=== PATIENT | female | born 1950 | race Caucasian/White ===

== ENCOUNTER 2022-01-16 07:05 | Outpatient (REF) | payer MEDICARE, SELFPAY ==
[2022-01-16 08:34] LABS: Hematocrit 28.6 % (37.0-47.0); Hemoglobin 8.9 g/dl (12.0-16.0); Mean Corpuscular HGB Conc 31.1 g/dl (31.0-35.0); Mean Corpuscular Hemoglobin 32.5 pg (27.0-33.0); Mean Corpuscular Volume 104.4 fL (80.0-98.0); Mean Platelet Volume 10.5 fL (9.4-12.3); Platelet Count 303 X10*3/uL (160-400); Red Blood Count 2.74 X10*6/uL (4.20-5.50); White Blood Count 6.7 X10*3/uL (4.8-10.8)
[2022-01-16 09:02] LABS: Alanine Aminotransferase 17 U/L (0-31); Alkaline Phosphatase 52 U/L (39-117); Anion Gap 15 (12-20); Aspartate Amino Transferase 15 U/L (5-31); Bilirubin Total 0.5 mg/dL (0.0-1.0); Blood Urea Nitrogen 48 mg/dL (9-16); Calcium 9.2 mg/dL (8.4-10.2); Carbon Dioxide 19 mmol/L (22-29); Chloride 105 mmol/L (96-108); Cholesterol 162 mg/dL; Estimated Glomerular Filt Rate 24; Glucose Random 100 mg/dL (60-115); HDL Cholesterol 52 mg/dL; LDL Cholesterol Calculated 94 mg/dl; Potassium 4.9 mmol/L (3.3-5.1); Sodium 134 mmol/L (135-145); Total Protein 7.1 g/dL (6.5-8.0); Triglycerides 83 mg/dL
[2022-01-16 09:13] LABS: TSH reflex Free T4 1.31 uIU/mL (0.32-4.0)
== END 2022-01-16 07:06 | disposition home or self-care (01) ==
LOC: HO.LAB 07:05
PROVIDERS: PCP Hospitalist; Visit Provider Hospitalist
DX: Z00.00 Encounter for general adult medical examination without abnormal findings (principal); Z13.220 Encounter for screening for lipoid disorders; Z13.29 Encounter for screening for other suspected endocrine disorder
CPT/HCPCS: 36415; 80053; 80061; 84443; 85027

== ENCOUNTER 2022-01-24 07:01 | Outpatient (REF) | payer MEDICARE, OTHER, SELFPAY ==
[2022-01-24 09:19] LABS: Anion Gap 14 (12-20); Blood Urea Nitrogen 55 mg/dL (9-16); Calcium 9.2 mg/dL (8.4-10.2); Carbon Dioxide 18 mmol/L (22-29); Chloride 106 mmol/L (96-108); Estimated Glomerular Filt Rate 33; Glucose Fasting 99 mg/dL (60-99); Iron 67 mcg/dL (30-160); Percent Iron Saturation 20 % (15-50); Potassium 4.9 mmol/L (3.3-5.1); Sodium 133 mmol/L (135-145); Total Iron Binding Capacity 331 mcg/dL (228-428); Unsaturated Iron Binding 264 ug/dL
[2022-01-24 09:27] LABS: Folate 11.5 ng/mL (> or = 4.0); Vitamin B12 415 pg/mL (200-900)
[2022-01-24 10:59] LABS: Appearance Urine HAZY; Color Urine YELLOW; Glucose Urine UA NEG (NEG); Leukocyte Esterase Urine 1+ (NEG); Nitrite Urine NEG (NEG); Urine Blood NEG (NEG); Urine Ketones NEG (NEG); Urine Protein NEG (NEG-TRACE)
[2022-01-24 11:22] LABS: Bacteria Urine 2+ /LPF; Mucus Urine 1+ /LPF; RBC Urine 0 /HPF (0); Squamous Epithelial Cell Urine 2+ /LPF
== END 2022-01-24 07:02 | disposition home or self-care (01) ==
LOC: HO.LAB 07:01
PROVIDERS: PCP Hospitalist; Visit Provider Hospitalist
DX: R74.8 Abnormal levels of other serum enzymes (principal); D64.9 Anemia, unspecified
CPT/HCPCS: 36415; 80048; 81001; 81003; 82607; 82746; 83540

== ENCOUNTER 2022-02-02 13:49 | Outpatient (REF) | payer MEDICARE, MEDICAID, SELFPAY ==
--- NOTE | ~2022-02-02 | CT_ITS ---
EXAMINATION: CT CHEST SCREENING CLINICAL INFORMATION: Nicotine dependence, cigarettes 1 pack per day x 45 years. COMPARISON: None. TECHNIQUE: Multidetector volumetric CT imaging of the chest is performed without contrast using low dose technique. Additional 2D coronal and sagittal reformatted images and axial 3D maximum intensity projection (MIP) images are generated on the CT workstation. This CT examination was performed using dose optimization techniques as appropriate, variously including the following: *Automated exposure control *Adjustment of mA and/or kV according to patient size (this includes techniques or standardized protocols for targeted exams where dose is matched to indication/reason for exam; i.e. extremities or head) *Use of iterative reconstruction technique DLP: 134 mGy-cm FINDINGS: LUNGS: The lungs are well-expanded with bibasilar apical parenchymal scarring and pleural thickening. Again visualized is a 7 mm perifissural nodule left lower lobe axial image 283/6. There is a 4 mm nodule right lower lobe axial image 461/6, new since the previous study. Focal atelectatic changes seen in the left lower lobe anterolateral basal segment. MEDIASTINUM: The thyroid lobes are symmetrical and normal. The central trachea and bronchi are widely patent. The heart size and great vessels are normal caliber. There is no abnormal mediastinal lymphadenopathy. There is no pericardial effusion seen. Mild coronary artery calcifications are visualized. PLEURA: There is no pleural effusion. No pleural mass or thickening. AXILLA: Small shotty lymph nodes are seen in the axilla. The chest wall is unremarkable. UPPER ABDOMEN: Visualized liver, spleen, pancreas and bilateral adrenal glands are unremarkable. OSSEOUS STRUCTURES: There is a superior endplate Schmorl's node T12 vertebra. No lytic or sclerotic process seen. CT/CT lung screening IMPRESSION: Stable 7 mm perifissural nodule left lower lobe. There is a 4 mm new nodule right lower lobe. ASSESSMENT: Lung-RADS category 2: Benign RECOMMENDATION: Low-dose annual CT chest.
== END 2022-02-02 13:50 | disposition home or self-care (01) ==
LOC: HO.CT 13:49
PROVIDERS: Visit Provider Physician Assistant Medical
DX: Z12.2 Encounter for screening for malignant neoplasm of respiratory organs (principal); F17.210 Nicotine dependence, cigarettes, uncomplicated
CPT/HCPCS: 71271; G0296

== ENCOUNTER → 2022-03-14 10:52 | Outpatient (BNVA) | payer MEDICARE, MEDICAID, SELFPAY | PROVIDERS: PCP Hospitalist; Visit Provider Nurse Practitioner Family | DX: R19.7 Diarrhea, unspecified (principal); R74.8 Abnormal levels of other serum enzymes; K92.2 Gastrointestinal hemorrhage, unspecified; E55.9 Vitamin D deficiency, unspecified; F17.210 Nicotine dependence, cigarettes, uncomplicated; Z12.11 Encounter for screening for malignant neoplasm of colon | CPT/HCPCS: 99202; 99212 ==

== ENCOUNTER 2022-03-22 09:12 | Outpatient (REF) | payer MEDICARE, MEDICAID, SELFPAY ==
[2022-03-22 09:43] LABS: Hematocrit 29.7 % (37.0-47.0); Hemoglobin 9.9 g/dl (12.0-16.0); Mean Corpuscular HGB Conc 33.3 g/dl (31.0-35.0); Mean Corpuscular Hemoglobin 33.1 pg (27.0-33.0); Mean Corpuscular Volume 99.3 fL (80.0-98.0); Mean Platelet Volume 10.2 fL (9.4-12.3); Platelet Count 280 X10*3/uL (160-400); Red Blood Count 2.99 X10*6/uL (4.20-5.50); Red Cell Distribution Width 11.9 % (11.0-16.0)
[2022-03-22 10:36] LABS: Iron 72 mcg/dL (30-160); Percent Iron Saturation 21 % (15-50); Total Iron Binding Capacity 339 mcg/dL (228-428); Unsaturated Iron Binding 267 ug/dL
[2022-03-22 10:39] LABS: Ferritin 183 ng/mL (10-250)
[2022-03-22 11:19] LABS: Folate 15.3 ng/mL (> or = 4.0); Vitamin B12 409 pg/mL (200-900)
[2022-03-26 14:17] LABS: Vitamin D 25-OH, D2 <4 ng/mL; Vitamin D 25-OH, D3 22 ng/mL; Vitamin D 25-OH, Total 22 ng/mL (30-100)
== END 2022-03-22 09:13 | disposition home or self-care (01) ==
LOC: HO.LAB 09:12
PROVIDERS: PCP Hospitalist; Visit Provider Nurse Practitioner Family
DX: E55.9 Vitamin D deficiency, unspecified (principal); R19.7 Diarrhea, unspecified; K92.2 Gastrointestinal hemorrhage, unspecified; R74.8 Abnormal levels of other serum enzymes; Z12.11 Encounter for screening for malignant neoplasm of colon
CPT/HCPCS: 36415; 82306; 82607; 82728; 82746; 83540; 85027

== ENCOUNTER 2022-05-04 07:00 | Outpatient (REF) | payer MEDICARE, MEDICAID, SELFPAY ==
[2022-05-04 08:13] LABS: Hematocrit 30.4 % (37.0-47.0); Hemoglobin 9.8 g/dl (12.0-16.0); Mean Corpuscular HGB Conc 32.2 g/dl (31.0-35.0); Mean Corpuscular Hemoglobin 32.1 pg (27.0-33.0); Mean Corpuscular Volume 99.7 fL (80.0-98.0); Mean Platelet Volume 10.6 fL (9.4-12.3); Platelet Count 283 X10*3/uL (160-400); Red Blood Count 3.05 X10*6/uL (4.20-5.50); Red Cell Distribution Width 12.8 % (11.0-16.0); White Blood Count 5.9 X10*3/uL (4.8-10.8)
[2022-05-04 08:56] LABS: Alanine Aminotransferase 13 U/L (0-31); Albumin Level 4.1 g/dL (3.5-5.0); Alkaline Phosphatase 47 U/L (39-117); Anion Gap 14 (12-20); Aspartate Amino Transferase 16 U/L (5-31); Bilirubin Total 0.3 mg/dL (0.0-1.0); Blood Urea Nitrogen 68 mg/dL (9-16); Calcium 8.4 mg/dL (8.4-10.2); Carbon Dioxide 20 mmol/L (22-29); Chloride 105 mmol/L (96-108); Cholesterol 191 mg/dL; Estimated Glomerular Filt Rate 32; Glucose Fasting 99 mg/dL (60-99); HDL Cholesterol 61 mg/dL; LDL Cholesterol Calculated 104 mg/dl; Magnesium 0.8 mg/dL (1.6-2.6); Phosphorus 4.1 mg/dL (2.7-4.5); Potassium 4.7 mmol/L (3.3-5.1); Sodium 134 mmol/L (135-145); Total Protein 7.1 g/dL (6.5-8.0); Triglycerides 130 mg/dL
[2022-05-04 09:12] LABS: TSH reflex Free T4 2.12 uIU/mL (0.32-4.0)
[2022-05-04 09:21] LABS: Appearance Urine CLEAR; Color Urine YELLOW; Glucose Urine UA NEG (NEG); Leukocyte Esterase Urine 1+ (NEG); Nitrite Urine NEG (NEG); Urine Blood NEG (NEG); Urine Ketones NEG (NEG); Urine Protein NEG (NEG-TRACE)
[2022-05-04 09:35] LABS: Bacteria Urine TRACE /LPF; Squamous Epithelial Cell Urine 1+ /LPF
[2022-05-04 09:36] LABS: RBC Urine 0 /HPF (0)
[2022-05-07 12:51] LABS: CA-125 7 U/mL (<35)
== END 2022-05-04 07:01 | disposition home or self-care (01) ==
LOC: HO.LAB 07:00
PROVIDERS: PCP Hospitalist; Visit Provider Hospitalist
DX: I10 Essential (primary) hypertension (principal); D64.9 Anemia, unspecified; K21.9 Gastro-esophageal reflux disease without esophagitis; F10.10 Alcohol abuse, uncomplicated; K52.9 Noninfective gastroenteritis and colitis, unspecified; R74.8 Abnormal levels of other serum enzymes; N93.9 Abnormal uterine and vaginal bleeding, unspecified; R63.4 Abnormal weight loss
CPT/HCPCS: 36415; 80053; 80061; 81001; 83735; 84100; 84443; 85027; 86304

== ENCOUNTER 2022-05-15 07:02 | Outpatient (REF) | payer MEDICARE, MEDICAID, SELFPAY ==
[2022-05-15 08:16] LABS: Anion Gap 13 (12-20); Blood Urea Nitrogen 84 mg/dL (9-16); Calcium 9.2 mg/dL (8.4-10.2); Carbon Dioxide 22 mmol/L (22-29); Chloride 101 mmol/L (96-108); Estimated Glomerular Filt Rate 27; Glucose Fasting 110 mg/dL (60-99); Iron 109 mcg/dL (30-160); Magnesium 1.3 mg/dL (1.6-2.6); Percent Iron Saturation 33 % (15-50); Potassium 4.5 mmol/L (3.3-5.1); Sodium 131 mmol/L (135-145); Total Iron Binding Capacity 332 mcg/dL (228-428); Unsaturated Iron Binding 223 ug/dL
[2022-05-15 08:43] LABS: Folate 12.8 ng/mL (> or = 4.0); Vitamin B12 369 pg/mL (200-900)
[2022-05-15 09:00] LABS: Appearance Urine CLEAR; Color Urine YELLOW; Glucose Urine UA NEG (NEG); Leukocyte Esterase Urine TRACE (NEG); Nitrite Urine NEG (NEG); Specific Gravity - Urine <= 1.005 (1.005-1.025); Urine Blood NEG (NEG); Urine Ketones NEG (NEG); Urine Protein NEG (NEG-TRACE)
[2022-05-15 09:14] LABS: Bacteria Urine 1+ /LPF; RBC Urine 0 /HPF (0); Squamous Epithelial Cell Urine 1+ /LPF; WBC Clumps Urine NOTED
== END 2022-05-15 07:03 | disposition home or self-care (01) ==
LOC: HO.LAB 07:02
PROVIDERS: PCP Hospitalist; Visit Provider Hospitalist
DX: R79.0 Abnormal level of blood mineral (principal); R74.8 Abnormal levels of other serum enzymes; D64.9 Anemia, unspecified
CPT/HCPCS: 36415; 80048; 81001; 81003; 82607; 82746; 83540; 83735

== ENCOUNTER 2022-07-17 09:42 | Day surgery (SDC) | payer MEDICARE, MEDICAID, SELFPAY ==
[2022-07-12 13:39] VITALS: BMI 16.4
--- NOTE | 2022-07-16 13:15 | HO.ANESPROP2 ---
Documented by User: Orin Beck NP 07/16/22 13:17 HPI - Anesthesia Eval Consult details Narrative: 71yo F for Upper Endoscopy and Colonoscopy [facility] Active Problems Active Problems: All Active Problems (Updated 07/02/22 @ 16:39 by Cleopatra Crespo CNP) Pruritic rash (Acute) Other specified menopausal and perimenopausal disorders (Acute) Vitamin D deficiency (Acute) Elevated creatine kinase (Acute) Low magnesium level (Acute) Abnormal physical evaluation (Acute) Abnormal uterine bleeding (Acute) Screening for osteoporosis (Acute) Hypertension, essential (Acute) Personal history of nicotine dependence (Acute) Anemia (Acute) Elevated creatine kinase (Acute) Smoker (Acute) Lumbago (Acute) Chronic diarrhea (Acute) Persistent depressive disorder with anxious distress, currently mild (Acute) Muscle spasms of neck (Acute) Headache (Acute) Weight loss (Acute) Anxiety and depression (Acute) Alcohol abuse (Acute) Seborrheic dermatitis (Acute) Chronic GERD (Acute) Past Medical History Medical History Anxiety and depression Hypertension, essential Personal history of nicotine dependence Tubular adenoma of colon (~2008) Family History Family History Father CVD (cardiovascular disease) Past heart attack Mother Hypertension Arthritis Sister Down syndrome Sister Stroke Daughter Acute asthma Son No problems noted. Surgical History Surgical History History of bunionectomy (~2008) History of colonoscopy History of D&C (~2017) History of esophagogastroduodenoscopy (EGD) History of meniscectomy of right knee (~2009) History of tubal ligation Social History Social History Housing: Other (no domestic violence) Alcohol intake: current Alcohol intake frequency: holidays/special occasions only Patient Tobacco Use Status: Current everyday Tobacco user Tobacco use type: Cigarette Cigarette Packs Per Day: 1 Years Smoked: (onset 16yo, 1ppd x 52yrs - 50PYH) e-Cigarette/Vaping Use: Never Used Advance Directives: No Advance Directives Information Provided: Yes service: No Current occupational status: retired Cognitive needs: No Hearing needs: No Vision needs: Yes Meds Allergies Allergy/AdvReac Type Severity Reaction Status Date / Time No Known Allergies Allergy Verified 07/17/22 10:01 Exam Exam Date and Time: July 16, 2022 1315 Height,Weight and Vital Signs: Height 5 ft 1 in Weight 39.463 kg Pertinent Lab Results Pertinent Lab Results: Laboratory Tests 05/04/22 05/15/22 07:14 07:16 WBC 5.9 Hgb 9.8 L Hct 30.4 L Plt Count 283 Sodium 131 L Potassium 4.5 Chloride 101 Carbon Dioxide 22 BUN 84 H D Creatinine 1.85 H Assessment and Plan Assessment Anesthesia Assessment: Chart Reviewed Documented by User: Santino Harper MD 07/17/22 10:33 [facility] Past Medical History Medical History Anxiety and depression Hypertension, essential Personal history of nicotine dependence Tubular adenoma of colon (~2008) Family History Family History Father CVD (cardiovascular disease) Past heart attack Mother Hypertension Arthritis Sister Down syndrome Sister Stroke Daughter Acute asthma Son No problems noted. Family history of problems with anesthesia: No Surgical History Surgical History History of bunionectomy (~2008) History of colonoscopy History of D&C (~2017) History of esophagogastroduodenoscopy (EGD) History of meniscectomy of right knee (~2009) History of tubal ligation History of Problems with Anesthesia: No Social History Social History Housing: Other (no domestic violence) Alcohol intake: current Alcohol intake frequency: holidays/special occasions only Patient Tobacco Use Status: Current everyday Tobacco user Tobacco use type: Cigarette Cigarette Packs Per Day: 1 Years Smoked: (onset 16yo, 1ppd x 52yrs - 50PYH) e-Cigarette/Vaping Use: Never Used Advance Directives: No Advance Directives Information Provided: Yes service: No Current occupational status: retired Cognitive needs: No Hearing needs: No Vision needs: Yes Meds Allergies Allergy/AdvReac Type Severity Reaction Status Date / Time No Known Allergies Allergy Verified 07/17/22 10:01 Exam Airway Mallampati Class: I TM Dist: >3cm Neck ROM: Full Denture: Upper and Lower Heart: rrr Lungs: clear Assessment and Plan Final Anesthetic Review Family History of Problems with Anesthesia: No History of Problems with Anesthesia: No NPO: Yes ASA Class: III Final Preanesthetic Review: No Changes in Pt Med Stat, Meds/Allgs Chart Reviewed, Consent Obtained/Reviewed and Anes Risks/Benef Reviewed Patient Risk: Intermediate Procedure Risk: Low Anesthetic Plan Anesthetic Plan: MAC: Disposition: Standard PACU
--- NOTE | 2022-07-17 09:49 | MHC.SHP ---
Pre-Procedural Eval Section A Date of Service: 07/17/22 Section B Chief Complaint: anemia Details of Present Illness: weight loss and dysphagia Relevant Social History: Tobacco Use Present Medications: see Short Stay Collaborative assessment Medical History: Significant History (Anxiety and depression Hypertension, essential Personal history of nicotine dependence Tubular adenoma of colon (~2008)) History of Previous Operations: Relevant previous surgery/procedure and date(s) (History of bunionectomy (~2008) History of colonoscopy History of D&C (~2017) History of esophagogastroduodenoscopy (EGD) History of meniscectomy of right knee (~2009) History of tubal ligation) Allergies: Allergies Allergy/AdvReac Type Severity Reaction Status Date / Time No Known Allergies Allergy Verified 07/02/22 16:43 Review of Systems Sugical H&P ROS: Negative: Constitution, Cardiovascular, Respiratory, Neurological, Psychiatric, Hem-Onc, Allergic/Immunologic, Gastrointestinal, Genitourinary, Musculoskeletal, Integumentary, Endocrine and Eyes/Ears/Nose/Throat Exam Surgical H&P Exam: Normal: HEENT, Normal: Extremities, Normal: Abdomen, Normal: Skin and Normal: Neurological and Significant Findings: Heart (hyperinflated chest) and Significant Findings: Lungs (reduced air entry) Exam Comment: thin Plan Diagnosis/Plan: Unchanged I have reviewed the history and physical and performed a pertinent physical examination on my patient. No changes have occurred unless specified.
[2022-07-17 10:10] VITALS: BP 124/59; PULSE 79; RESP 18; TEMP 36.8; O2SAT 100
--- NOTE | 2022-07-17 10:22 | P.OP_ITS ---
Operative Note Operative Note Date of Service: 07/17/22 Narrative: Operative Information Procedure Description: EGD, Colonoscopy Indication: anemia, weight loss, dysphagia Anesthesia: MAC FLEXIBLE TRANSORAL UPPER GASTROINTESTINAL ENDOSCOPY AND COLONOSCOPY PROCEDURE NOTE UPPER ENDOSCOPY Consent: Indications for the procedure and potential complications of bleeding, perforation, reaction to medications and missed diagnosis were discussed with the patient and informed consent was obtained. Instrument: Olympus GIF H 190 J mid size upper endoscope Monitoring: Vital signs and clinical assessment, continuous EKG monitoring, Pulse oximetry, Carbon Dioxide monitoring and blood pressure monitoring were done throughout the procedure. Procedure: The patient was placed in the left lateral decubitis position and pre-procedure medications were administered and a bite block was placed. The endoscope was inserted into the mouth and advanced under direct vision to the third part of duodenum. A careful inspection was made as the upper endoscope was withdrawn including a retroflexed examination of the proximal stomach; Findings and interventions are described below. Findings: Larynx:normal Esophagus: GE junction at 42 cm, diaphragm hiatus at 42 cm, distal esophagus appeared strictured, dilated to 14 mm with resistance felt but no tears seen, UEs also dilated to 14 mm. [place] pink tongues 1 cm with island of salmon pink tissue, bx taken as well as WATS 3 D brushing,. forceps bx also taken from GEJ, distal esophagus. Stomach: Normal mucosa. Biopsies were obtained. Grade 2 flap valve on retroflexed examination of the cardia. Duodenum: mild bulbar duodenitis, bx taken Intervention: Biopsies as noted above, balloon dilation COLONOSCOPY Instrument: Olympus variable stiffness pediatric scope 190L Colonoscopy Monitoring: Vital signs and clinical assessment, continuous EKG monitoring, Pulse oximetry, Carbon Dioxide monitoring and blood pressure monitoring were done throughout the procedure. Colon withdrawal time was 12 minutes. Procedure: The patient was placed in the left lateral decubitis position and pre-procedure medications were administered. After a digital rectal examination of the ano-rectum, the video colonoscope was inserted into the rectum and advanced through the colon to the cecum/TI. The colonoscope was slowly withdrawn in a retrograde panoramic fashion and the colon mucosa was carefully examined including a retroflexed view of the rectum. Findings and interventions are described below. Procedure Difficulty:moderate Findings: Terminal Ileum-normal random colon bx taken to r/o infiltrative disease Cecum:normal Ascending Colon: normal Transverse Colon -normal Descending Colon: diverticulosis Sigmoid Colon: severe diverticulosis with varied sized tics and luminal narrowing Rectum: Retroflexion with small internal hemorrhoids, grade I Anorectum - normal Colon preparation: [place] Bowel Preparation Scale Right colon; 2 Transverse colon: 3 Left colon; 2 (0 = Unprepared colon segment with mucosa not seen due to solid stool that cannot be cleared. 1 = Portion of mucosa of the colon segment seen, but other areas of the colon segment not well seen due to staining, residual stool and/or opaque liquid. 2 = Minor amount of residual staining, small fragments of stool and/or opaque liquid, but mucosa of colon segment seen well. 3 = Entire mucosa of colon segment seen well with no residual staining, small fragments of stool or opaque liquid) Impression and Post Procedure Diagnosis: Endoscopy Findings: possible barretts duodenitis esophageal stricturing Colonoscopy Findings: internal hemorrhoids diverticular disease Plan: Await Pathology results Repeat Colonoscopy in 10 years if health allows or earlier if clinically indicated High fiber diet leaflet avoid straining at stool, epsom salts and sitz bath, anusol supps or cream no obvious cause for anemia on exam today, most likely anemia of chronic disease from CKD, possible underlying neoplasia Above findings were reviewed with the patient and relevant handouts were provided if indicated.
[2022-07-17] MEDS: Lactated Ringers 1,000 ML 100 ML IVCONT (10:28)
[2022-07-17 10:36] LABS: Anion Gap 22 (12-20); Blood Urea Nitrogen 64 mg/dL (9-16); Calcium 8.7 mg/dL (8.4-10.2); Carbon Dioxide 15 mmol/L (22-29); Chloride 97 mmol/L (96-108); Creatinine Clr Calc Pharmacy 13.7; Estimated Glomerular Filt Rate 21; Glucose Fasting 83 mg/dL (60-99); Potassium 3.9 mmol/L (3.3-5.1); Sodium 130 mmol/L (135-145)
[2022-07-17 11:26] VITALS: BP 89/42; PULSE 75; RESP 20; TEMP 36.1; O2SAT 98
[2022-07-17 11:41] VITALS: BP 106/58; PULSE 67; RESP 20; O2SAT 98
== END 2022-07-17 12:45 | disposition home or self-care (01) ==
PROVIDERS: Nurse Practitioner; PCP Hospitalist; Visit Provider Internal Medicine Gastroenterology
PROC: (CPT 45380; principal; 2022-07-17 10:50)
DX: Z12.11 Encounter for screening for malignant neoplasm of colon (principal); Z86.010 Personal history of colon polyps; K57.30 Diverticulosis of large intestine without perforation or abscess without bleeding; K64.0 First degree hemorrhoids; D64.9 Anemia, unspecified; K21.9 Gastro-esophageal reflux disease without esophagitis; R13.10 Dysphagia, unspecified; R63.4 Abnormal weight loss; Z68.1 Body mass index [BMI] 19.9 or less, adult; K29.80 Duodenitis without bleeding; K22.2 Esophageal obstruction; K44.9 Diaphragmatic hernia without obstruction or gangrene; I10 Essential (primary) hypertension; F41.8 Other specified anxiety disorders; Z79.899 Other long term (current) drug therapy; F17.210 Nicotine dependence, cigarettes, uncomplicated
CPT/HCPCS: 45380; 43249; 43239; 36415; 80048; 88305; 88312; 88342; C1726

== ENCOUNTER 2023-05-27 09:49 | Outpatient (REF) | payer MEDICARE, MEDICAID, SELFPAY ==
[2023-05-27 12:27] LABS: Anion Gap 16 (12-20); Blood Urea Nitrogen 48 mg/dL (9-16); Calcium 9.4 mg/dL (8.4-10.2); Carbon Dioxide 20 mmol/L (22-29); Chloride 100 mmol/L (96-108); Estimated Glomerular Filt Rate 28; Glucose Random 109 mg/dL (60-115); Potassium 4.6 mmol/L (3.3-5.1); Sodium 131 mmol/L (135-145)
[2023-05-30 12:34] LABS: IgA 383 mg/dL (70-320); IgG 1276 mg/dL (600-1540); IgM 79 mg/dL (50-300)
== END 2023-05-27 09:50 | disposition home or self-care (01) ==
LOC: HO.WFDLDS 09:49
DX: I10 Essential (primary) hypertension (principal); N17.9 Acute kidney failure, unspecified
CPT/HCPCS: 36415; 80048; 82784; 86334

== ENCOUNTER 2023-07-17 09:46 | Outpatient (AMB) | payer MEDICARE, SELFPAY ==
--- NOTE | 2023-07-17 09:51 | A.OFFPC_ITS ---
Vital Signs 07/17/23 09:52 Height 5 ft 2.25 in Weight 93 lb 6 oz BMI 16.9 BP 142/70 H Blood Pressure Location Lt brachial Position Sitting Respiration 13 Pulse 88 Pulse Source Pulse Oximeter Temp 97.8 F Temp Source Oral Pulse Oximetry (%) 98 Oxygen Delivery Method Room Air Intake Visit Reasons: Liver Disease / Skin Issue Intake Note: Patient reports she is here to follow up regarding her itching skin and liver disease concern. Patient reports she has been to a case making machine operator in the area who stated the itching skin is not a dermatology concern, but a medical concern. Fall Intern Required: No Accompanied by: Self / Same As Patient Allergies No Known Allergies Allergy (Verified 07/17/23 09:59) Tobacco use date assessed: 07/17/23 Fall risk assessment: No Falls in past year Last assessed Fall Risk: 07/17/23 Dental Screening Dental Screen Date: 07/17/23 Did you have a dental visit in the last 12 months?: No Did you have a dental problem in the last 6 months where you did not have access to dental care?: No Was dental information given to patient?: Patient has dentist HPI Liver Disease / Skin Issue HPI Details 72 y/o female presents today with compla ints of itching skin and liver disease concerns. Pt reports she had been to the hospital and they had seen issues with her livers. I do not see any notes regarding this. Pt reports she has not been drinking much. She does take tylenol 4-6x a day for about 2000mg per day. [facility] Medical History Personal history of nicotine dependence Tubular adenoma of colon (~2008) Anxiety and depression Hypertension, essential Surgical History History of meniscectomy of right knee (~2009) History of esophagogastroduodenoscopy (EGD) History of colonoscopy History of D&C (~2017) History of tubal ligation History of bunionectomy (~2008) Family History Father CVD (cardiovascular disease) Past heart attack Mother Hypertension Arthritis Sister Down syndrome Sister Stroke Daughter Acute asthma Son No problems noted. Social History Housing: Other (no domestic violence) Alcohol intake: current Alcohol intake frequency: holidays/special occasions only Patient Tobacco Use Status: Current everyday Tobacco user Tobacco use type: Cigarette Cigarette Packs Per Day: 1 Years Smoked: (onset 16yo, 1ppd x 52yrs - 50PYH) e-Cigarette/Vaping Use: Never Used service: No Current occupational status: retired Cognitive needs: No Hearing needs: No Vision needs: Yes Questionnaire Thrive Questionnaire Date Thrive assessed: 07/03/21 STELLA-7 AMB Questionnaire STELLA-7 Date STELLA - 7 assessed: 05/02/22 Source: Developed by Drs. Elio Arriaza, Lay Ward, Chan Cyr and colleagues, with an educational meghan from [employer]. Review of Systems Const Denies chills, Denies fatigue, Denies fever(s), Denies headache(s) and Denies weakness ENT Denies dizziness and Denies headache(s) Card Denies chest pain, Denies lightheadedness, Denies dyspnea and Denies other (Palpitations) Resp Denies cough, Denies dyspnea, Denies wheezing and Denies other ( shortness of breath) Musc Denies numbness and Denies tingling Neuro Denies dizziness, Denies headache(s), Denies numbness, Denies tingling, Denies paresthesias and Denies weakness Psych Denies anxiety and Denies depression Endo Denies fatigue Aller/Immun Denies wheezing Physical exam (Primary Care) Vital Signs: Last Vital Signs Temp 97.8 F 07/17/23 09:52 Pulse 88 07/17/23 09:52 Resp 13 07/17/23 09:52 BP 142/70 H 07/17/23 09:52 Pulse Ox 98 07/17/23 09:52 Oxygen Delivery Method Room Air 07/17/23 09:52 BMI result Body Mass Index 16.9 Tobacco/Smoking Status: Tobacco use Status Tobacco use date assessed 07/17/23 07/17/23 10:02 Patient Tobacco Use Status Current everyday Tobacco 07/17/23 10:02 Tobacco use type Cigarette 07/17/23 10:02 e-Cigarette/Vaping Use Never Used 07/17/23 10:02 Thrive Assessment: Date of Thrive Assessment Date Thrive assessed 07/03/21 07/17/23 10:02 Const General: no acute distress and well developed Nutritional Appearance: underweight Orientation/consciousness: patient oriented x3 HENNC Head: Yes normocephalic and Yes atraumatic Eyes General: appearance normal, both eyes and all related structures Pupils: Equal, round and reactive pupils present EOM: EOMs intact bilaterally Resp Effort & Inspection: normal respiratory effort Auscultation: clear to auscultation bilaterally Cardio Rate: regular rate Rhythm: regular rhythm Heart sounds: S1 normal heart sound present, S2 normal heart sound present, no gallops, no murmurs and no rubs Neuro General: patient oriented x3 and gait normal Cranial nerves: Yes Equal, round and reactive pupils present Psych Affect: normal affect Assessment and Plan Assessment & Plan (1) Pruritic rash: Code(s): L28.2 - Other prurigo Plan: Pruritis of skin with mild dryness Had seen dermatology and was given creams and treatments which did not help. She was then told that she has a medical condition not a skin condition. (2) Back pain: Code(s): M54.9 - Dorsalgia, unspecified Plan: Complaints of back pain and headaches. She has been using Tylenol frequently. Advised her to reduce this as I am checking her liver enzymes since she has been told that she has problems with her liver. (3) Immunization counseling: Code(s): Z71.85 - Encounter for immunization safety counseling Plan: Due for flu shot. Advised high-dose flu shot but patient would like to get flu shot here today. Will give flu shot (4) Alcohol abuse: Code(s): F10.10 - Alcohol abuse, uncomplicated Plan: Patient says she has been told she has problems with her liver. Denies current alcohol use. Prior notes from her previous PCP note that she has some inconsi stencies with whether she is drink air not. Unclear what her alcohol use status is. Unclear what her liver enzymes and liver function tests are currently. Checking labs. Advise she decrease or avoid Tylenol use and alcohol use. Hydrate well. Plan Patient also notes that she has been seen for liver problems but I do not have any notes from her liver specialist. Will request these and she will try to bring the min. Checking lab work today. Orders: Orders UA and rflx microscopic Today L28.2 - Other prurigo, Z00.00 - Encounter for general adult medical examination without abnormal findings Prothrombin Time INR Today F10.10 - Alcohol abuse, uncomplicated Complete Blood Count Auto Diff Today L28.2 - Other prurigo, Z00.00 - Encounter for general adult medical examination without abnormal findings Comprehensive Met. Panel Today L28.2 - Other prurigo Vitamin B12 and Folate Today E53.8 - Deficiency of other specified B group vitamins, L28.2 - Other prurigo Influenza [id number] Immunization Today F10.10 - Alcohol abuse, uncomplicated, Z23 - Encounter for immunization Medications: New flu vacc [id number] 6mos up(PF) 0.5 mL IM ONCE 0.5 mL 0RF F10.10 - Alcohol abuse, uncomplicated, Z23 - Encounter for immunization Coding Level of Care Code Est Pt Level 4 (60759) Diagnoses Pruritic rash L28.2 Back pain M54.9 Immunization counseling Z71.85 Alcohol abuse F10.10
[2023-07-17 09:52] VITALS: BP 142/70; PULSE 88; RESP 13; TEMP 36.6; O2SAT 98; BMI 16.9
== END 2023-07-17 11:55 | disposition home or self-care (01) ==
PROVIDERS: PCP Hospitalist; Visit Provider Family Medicine
DX: L28.2 Other prurigo (principal); M54.9 Dorsalgia, unspecified; Z71.85 Encounter for immunization safety counseling; F10.10 Alcohol abuse, uncomplicated; Z23 Encounter for immunization
CPT/HCPCS: 90471; 90686; 99214

== ENCOUNTER 2023-07-17 11:39 | Outpatient (REF) | payer MEDICARE, SELFPAY ==
[2023-07-17 14:42] LABS: MANUAL DIFF FLAG NO
[2023-07-17 14:50] LABS: Appearance Urine Clear; Color Urine Yellow; Glucose Urine UA Negative (Negative); Leukocyte Esterase Urine Small (1+) (Negative); Nitrite Urine Negative (Negative); PH 5.5 (5.0-9.0); Specific Gravity - Urine 1.015 (1.005-1.025); UMIC TRIGGER UA YES; Urine Blood Negative (Negative); Urine Ketones Negative (Negative); Urine Protein Negative (Neg-Trace)
[2023-07-17 15:04] LABS: Bacteria Urine None Seen (None Seen); Hyaline Casts Urine 0-2 /LPF (0-2); RBC Urine 0-2 /HPF (0-2); Squamous Epithelial Cell Urine 0-2 /HPF (0-2)
[2023-07-17 15:08] LABS: Basophils Absolute Auto 0.1 X10*3/uL (0.0-0.2); Basophils Percent Auto 1.2 % (0-2); Eosinophils Absolute Auto 0.3 X10*3/uL (0.0-0.4); Eosinophils Percent Auto 5.4 % (0-4); Hematocrit 32.1 % (37.0-47.0); Hemoglobin 10.4 g/dl (12.0-16.0); Imm Gran Abs Auto 0.02 X10*3/uL (0.00-0.03); Imm Gran Pct Auto 0.3 % (0.0-0.4); Lymphocytes Absolute Auto 1.5 X10*3/uL (1.2-4.9); Lymphocytes Percent Auto 26.3 % (20-40); Mean Corpuscular HGB Conc 32.4 g/dl (31.0-35.0); Mean Corpuscular Hemoglobin 33.4 pg (27.0-33.0); Mean Corpuscular Volume 103.2 fL (80.0-98.0); Mean Platelet Volume 10.5 fL (9.4-12.3); Monocytes Absolute Auto 0.5 X10*3/uL (0.1-1.2); Monocytes Percent Auto 7.8 % (2-11); Neutrophils Absolute Auto 3.4 x10*3/uL (2.0-8.3); Platelet Count 314 X10*3/uL (160-400); Red Blood Count 3.11 X10*6/uL (4.20-5.50); Red Cell Distribution Width 14.8 % (11.0-16.0); White Blood Count 5.8 X10*3/uL (4.8-10.8)
[2023-07-17 15:09] LABS: INTERNATIONAL NORM RATIO 0.8 (0.9-1.1); Prothrombin Time 9.9 SEC (11.1-13.3)
[2023-07-17 15:20] LABS: Alanine Aminotransferase 10 U/L (0-31); Albumin Level 4.4 g/dL (3.5-5.0); Alkaline Phosphatase 46 U/L (39-117); Anion Gap 13 (12-20); Aspartate Amino Transferase 19 U/L (5-31); Bilirubin Total 0.3 mg/dL (0.0-1.0); Blood Urea Nitrogen 32 mg/dL (9-16); Calcium 9.6 mg/dL (8.4-10.2); Carbon Dioxide 24 mmol/L (22-29); Chloride 102 mmol/L (96-108); Estimated Glomerular Filt Rate 30; Glucose Random 97 mg/dL (60-115); Potassium 4.2 mmol/L (3.3-5.1); Sodium 135 mmol/L (135-145); Total Protein 7.9 g/dL (6.5-8.0)
[2023-07-17 15:50] LABS: Folate 12.4 ng/mL (> or = 4.0); Vitamin B12 458 pg/mL (200-900)
== END 2023-07-17 11:40 | disposition home or self-care (01) ==
LOC: HO.WFDLDS 11:39
PROVIDERS: Visit Provider Family Medicine
DX: Z00.00 Encounter for general adult medical examination without abnormal findings (principal); L28.2 Other prurigo; E53.8 Deficiency of other specified B group vitamins; F10.10 Alcohol abuse, uncomplicated
CPT/HCPCS: 36415; 80053; 81001; 81003; 82607; 82746; 85025; 85610

== ENCOUNTER 2023-07-30 09:43 | Outpatient (AMB) | payer MEDICARE, SELFPAY ==
[2023-07-30 09:47] VITALS: BP 128/72; PULSE 78; O2SAT 98; BMI 16.4
--- NOTE | 2023-07-30 09:47 | MHC.PC.OV ---
Vital Signs 07/30/23 09:47 Height 5 ft 2.5 in Weight 91 lb BMI 16.4 BP 128/72 Blood Pressure Location Lt brachial Position Sitting Pulse 78 Pulse Source Pulse Oximeter Pulse Oximetry (%) 98 Oxygen Delivery Method Room Air Intake Visit Reasons: f/u labs Intake Note: Patient is here for follow up on labs. Allergies No Known Allergies Allergy (Verified 07/30/23 09:48) Tobacco use date assessed: 07/30/23 Fall risk assessment: No Falls in past year Last assessed Fall Risk: 07/30/23 Dental Screening Dental Screen Date: 07/30/23 Did you have a dental visit in the last 12 months?: No Was dental information given to patient?: Yes HPI f/u labs HPI Details 73 y/o female presents to f/u labs. Has?had?longstanding?complaints?of?itch?and?was?told?by?her?forestry consultant?that?this?was?a?medical?condition?rather?than?a?skin?condition. Does?have?chronic?renal?failure?though?this?has?been?improving?somewhat.??She?had?been?followed?by?nephrology?at?[facility]?[place]?but?does?not?want?to?go?there?any?longer. She?has?significantly?decreased?her?drinking?and?is?only?having?1-2?drinks?on?occasion. Liver?enzymes?have?been?normal,?bilirubin?is?normal. Has?mild/moderate?anemia?which?is?improving. Labs were drawn 07/17/23. Reviewed labs with pt. Anemia. She denies any bleeding in her stools. Creatinine levels improved from 1.78 to 1.65. COUNTS INCLUDE 234 BEDS AT THE [facility] Medical History Personal history of nicotine dependence Tubular adenoma of colon (~2008) Anxiety and depression Hypertension, essential Surgical History History of meniscectomy of right knee (~2009) History of esophagogastroduodenoscopy (EGD) History of colonoscopy History of D&C (~2017) History of tubal ligation History of bunionectomy (~2008) Family History Father CVD (cardiovascular disease) Past heart attack Mother Hypertension Arthritis Sister Down syndrome Sister Stroke Daughter Acute asthma Son No problems noted. Social History Housing: Other (no domestic violence) Alcohol intake: current Alcohol intake frequency: holidays/special occasions only Patient Tobacco Use Status: Current everyday Tobacco user Tobacco use type: Cigarette Cigarettes Per Day: 10 Years Smoked: (onset 16yo, 1ppd x 52yrs - 50PYH) e-Cigarette/Vaping Use: Never Used service: No Current occupational status: retired Cognitive needs: No Hearing needs: No Vision needs: Yes Questionnaire Thrive Questionnaire Date Thrive assessed: 07/03/21 STELLA-7 AMB Questionnaire STELLA-7 Date STELLA - 7 assessed: 05/02/22 Source: Developed by Drs. Elio Arriaza, Lay Ward, Chan Cyr and colleagues, with an educational meghan from [employer]. Review of Systems Const Denies chills, Denies fatigue, Denies fever(s), Denies headache(s) and Denies weakness ENT Denies dizziness and Denies headache(s) Card Denies chest pain, Denies lightheadedness, Denies dyspnea and Denies other (Palpitations) Resp Denies cough, Denies dyspnea, Denies wheezing and Denies other ( shortness of breath) Musc Denies numbness and Denies tingling Neuro Denies dizziness, Denies headache(s), Denies numbness, Denies tingling, Denies paresthesias and Denies weakness Psych Denies anxiety and Denies depression Endo Denies fatigue Aller/Immun Denies wheezing Physical exam (Primary Care) Vital Signs: Last Vital Signs Pulse 78 07/30/23 09:47 BP 128/72 07/30/23 09:47 Pulse Ox 98 07/30/23 09:47 Oxygen Delivery Method Room Air 07/30/23 09:47 BMI result Body Mass Index 16.4 Tobacco/Smoking Status: Tobacco use Status Tobacco use date assessed 07/30/23 07/30/23 09:55 Patient Tobacco Use Status Current everyday Tobacco 07/30/23 09:55 Tobacco use type Cigarette 07/30/23 09:55 e-Cigarette/Vaping Use Never Used 07/30/23 09:55 Thrive Assessment: Date of Thrive Assessment Date Thrive assessed 07/03/21 07/30/23 09:55 Const General: no acute distress and well developed Nutritional Appearance: well nourished Orientation/consciousness: patient oriented x3 [facility] Head: Yes normocephalic and Yes atraumatic Eyes General: appearance normal, both eyes and all related structures Pupils: Equal, round and reactive pupils present EOM: EOMs intact bilaterally Resp Effort & Inspection: normal respiratory effort Auscultation: clear to auscultation bilaterally Cardio Rate: regular rate Rhythm: regular rhythm Heart sounds: S1 normal heart sound present, S2 normal heart sound present, no gallops, no murmurs and no rubs Neuro General: patient oriented x3 and gait normal Cranial nerves: Yes Equal, round and reactive pupils present Psych Affect: normal affect Assessment and Plan Assessment & Plan (1) Renal failure: Code(s): N19 - Unspecified kidney failure Plan: Improving?but?does?have?some?chronic?renal?failure.??Unclear?what?her?baseline?is. Does?not?want?to?go?to?[facility]?nephrology?any?longer?as?it?is?too?far?for?her. She?lives[facility]near[facility]and?I?will?refer?her?to? No?longer?on?FREDA?inhibitor?or?hydrochlorothiazide. If?renal?function?continues?to?improve,?may?want?to?add?back?a?small?dose?FREDA (2) Anemia: Code(s): D64.9 - Anemia, unspecified Plan: Improving. Denies?any?GI?bleeding?and?had?a?recent?colonoscopy/endoscopy. Endoscopy?Has?some?erosive?esophagitis?but?otherwise?was?okay.??She?will?follow-up?with?GI We?will?continue?to?follow?H&H Encouraged?her?to?maintain?alcohol?abstinence?as?best?she?can (3) Screening for colon cancer: Code(s): Z12.11 - Encounter for screening for malignant neoplasm of colon Plan: Follow-up?with?GI (4) Pruritic rash: Code(s): L28.2 - Other prurigo Plan: Pruritic?rash?does?not?seem?to?be?medical Continue?clobetasol?and?I?encouraged?her?to?use?a moisturizing?cream?frequently. Follow-up?with?dermatology Coding Level of Care Code Est Pt Level 4 (00199) Diagnoses Renal failure N19 Anemia D64.9 Screening for colon cancer Z12.11 Pruritic rash L28.2
== END 2023-07-30 10:20 | disposition home or self-care (01) ==
PROVIDERS: PCP Hospitalist; Visit Provider Family Medicine
DX: N19 Unspecified kidney failure (principal); D64.9 Anemia, unspecified; Z12.11 Encounter for screening for malignant neoplasm of colon; L28.2 Other prurigo
CPT/HCPCS: 99214

== ENCOUNTER 2023-09-18 09:23 | Outpatient (AMB) | payer MEDICARE, MEDICAID, SELFPAY ==
--- NOTE | 2023-09-18 09:28 | HO.NEPHOV_ITS ---
HPI HPI Comments History of Present Illness Details I had the privilege of seeing Isabela in consultation for her CKD on a backdrop of long standing hypertension and anemia. She had not been monitoring her BP very closely at home but has been compliant with her medications. She is not a diabetic. She denies Carotid stenosis, CAD, CHF, PAD, PEDRO, CVA, recurrent UTI's, renal stones, hearing deficits, M/S hematuria, joint swellings, photosensitivity, skin rashes, epistaxis, hemoptysis, hemetemesis or melena. She denies new bone or back pain. She doesn't take excess NSAID's. She is not known to have proteinuria. She was on ACEI which was discontinued when she developed JOSE on CKD during her COVID infection. She also has long standing anemia of chronic disease. Her last serum creatinine was 1.65 PFSH Medical History Personal history of nicotine dependence Tubular adenoma of colon (~2008) Anxiety and depression Hypertension, essential Surgical History History of meniscectomy of right knee (~2009) History of esophagogastroduodenoscopy (EGD) History of colonoscopy History of D&C (~2017) History of tubal ligation History of bunionectomy (~2008) Family History Father CVD (cardiovascular disease) Past heart attack Mother Hypertension Arthritis Sister Down syndrome Sister Stroke Daughter Acute asthma Son No problems noted. Social History Housing: Other (no domestic violence) Alcohol intake: current Alcohol intake frequency: holidays/special occasions only Patient Tobacco Use Status: Current everyday Tobacco user Tobacco use type: Cigarette Cigarettes Per Day: 10 Years Smoked: (onset 16yo, 1ppd x 52yrs - 50PYH) e-Cigarette/Vaping Use: Never Used service: No Current occupational status: retired Cognitive needs: No Hearing needs: No Vision needs: Yes Vital Signs 09/18/23 09:29 Height 5 ft 2.5 in Weight 94 lb 2 oz BMI 16.9 BP 142/80 H Blood Pressure Location Lt brachial Position Sitting Pulse 69 Pulse Source Pulse Oximeter Physical Exam Vital Signs: Last Vital Signs Pulse 69 09/18/23 09:29 BP 142/80 H 09/18/23 09:29 BMI result Body Mass Index 16.9 Const General: comfortable and no acute distress Orientation/consciousness: patient oriented x3 HEENT Head: Yes normocephalic Mouth: Normal oral and palatal mucosa present Eyes EOM: EOMs intact bilaterally Neck Neck: Yes supple Resp Auscultation: clear to auscultation bilaterally Cardio Jugular venous distension: no JVD Rate: regular rate GI Palpation (GI): Soft to palpation Auscultation: normal bowel sounds General: Yes no CVA tenderness Back/Spine/Pelvis Back: no CVA tenderness Skin General skin exam: no rashes or lesions noted Neuro General: patient oriented x3 and moves all extremities Extrem General: Yes no pedal edema Assessment & Plan Assessment & Plan (1) CKD (chronic kidney disease) stage 3, GFR 30-59 ml/min: Code(s): N18.30 - Chronic kidney disease, stage 3 unspecified Qualifiers: Chronic kidney disease stage 3 subtype: stage 3a (GFR 45-59) Qualified Code(s): N18.31 - Chronic kidney disease, stage 3a (2) Hypertension, essential: Code(s): I10 - Essential (primary) hypertension (3) Anemia in chronic kidney disease: Code(s): N18.9 - Chronic kidney disease, unspecified; D63.1 - Anemia in chronic kidney disease Qualifiers: Chronic kidney disease stage: stage 3 (moderate) Chronic kidney disease stage 3 subtype: stage 3b (GFR 30-44) Qualified Code(s): N18.32 - Chronic kidney disease, stage 3b; D63.1 - Anemia in chronic kidney disease Plan Isabela has CKD 3 likely due to long standing hypertension and or vascular disease. She has been on PPI for a long time which also can lead to AIN. She had JOSE on CKD during COVID infection which has been resolved. Her serum creatinine is back to baseline. I have ordered Doppler of renal arteries and 24 hour urine for GFR along with other work up. She was on ACEI in the past which has been discontinued by her previous Renal MD in [place]. She will be a candidate for ACEI/ARB which I plan to initiate soon , with time, after reviewing her follow up lab data. She may need Jardiance or Farxiga based on evolving data. Her BP needs to be maintained at goal consistently. I have ordered serum immunofixation. She will need Procrit once her Hb drifts down to 10 or under. Further management is pending evolving data. Time spent discussing all the above, retrieving data, patient encounter and documentation 50 minutes. Follow up given Orders: Orders Calcium 09/18/23 I10 - Essential (primary) hypertension, N18.30 - Chronic kidney disease, stage 3 unspecified Electrolytes 09/18/23 I10 - Essential (primary) hypertension, N18.30 - Chronic kidney disease, stage 3 unspecified Blood Urea Nitrogen 09/18/23 I10 - Essential (primary) hypertension, N18.30 - Chronic kidney disease, stage 3 unspecified Creatinine 09/18/23 I10 - Essential (primary) hypertension, N18.30 - Chronic kidney disease, stage 3 unspecified Parathyroid Hormone Intact 09/18/23 I10 - Essential (primary) hypertension, N18.30 - Chronic kidney disease, stage 3 unspecified Protein Creatinine Ratio, Ur 09/18/23 I10 - Essential (primary) hypertension, N18.30 - Chronic kidney disease, stage 3 unspecified ANCA Vasculitides 09/18/23 I10 - Essential (primary) hypertension, N18.30 - Chronic kidney disease, stage 3 unspecified Immunofixation Pnl, Serum 09/18/23 I10 - Essential (primary) hypertension, N18.30 - Chronic kidney disease, stage 3 unspecified Phosphorus 09/18/23 I10 - Essential (primary) hypertension, N18.30 - Chronic kidney disease, stage 3 unspecified Vitamin D 25-OH Total 09/18/23 I10 - Essential (primary) hypertension, N18.30 - Chronic kidney disease, stage 3 unspecified UA and rflx microscopic 09/18/23 I10 - Essential (primary) hypertension, N18.30 - Chronic kidney disease, stage 3 unspecified RAY[place]D Reflex Titer and Pattern 09/18/23 I10 - Essential (primary) hypertension, N18.30 - Chronic kidney disease, stage 3 unspecified Anti DNA DS Antibody 09/18/23 I10 - Essential (primary) hypertension, N18.30 - Chronic kidney disease, stage 3 unspecified US renal doppler 09/18/23 N18.30 - Chronic kidney disease, stage 3 unspecified Complement C3 09/18/23 N18.30 - Chronic kidney disease, stage 3 unspecified Phospholipase A2 Receptor Pnl 09/18/23 N18.30 - Chronic kidney disease, stage 3 unspecified [place] [facility] [place] N18.30 - Chronic kidney disease, stage 3 unspecified Coding Level of Care Code New Pt Level 4 (15712) Diagnoses Stage 3a chronic kidney disease N18.31 Chronic kidney disease stage 3 subtype: stage 3a (GFR 45-59) Hypertension, essential I10 Anemia in stage 3b chronic kidney disease N18.32; D63.1 Chronic kidney disease stage: stage 3 (moderate) Chronic kidney disease stage 3 subtype: stage 3b (GFR 30-44)
[2023-09-18 09:29] VITALS: BP 142/80; PULSE 69; BMI 16.9
== END 2023-09-18 10:20 | disposition home or self-care (01) ==
LOC: HO.HKA 09:23
PROVIDERS: PCP Hospitalist; Visit Provider Internal Medicine Nephrology
DX: N18.31 Chronic kidney disease, stage 3a (principal); I10 Essential (primary) hypertension; N18.32 Chronic kidney disease, stage 3b; D63.1 Anemia in chronic kidney disease
CPT/HCPCS: 99204

== ENCOUNTER → 2023-09-18 09:23 | Outpatient (BNVA) | payer MEDICARE, MEDICAID, SELFPAY | PROVIDERS: PCP Hospitalist; Visit Provider Internal Medicine Nephrology | DX: I12.9 Hypertensive chronic kidney disease with stage 1 through stage 4 chronic kidney disease, or unspecified chronic kidney disease (principal); N18.32 Chronic kidney disease, stage 3b; D63.1 Anemia in chronic kidney disease | CPT/HCPCS: 99202 ==

== ENCOUNTER 2023-10-31 09:16 | Outpatient (REF) | payer MEDICARE, MEDICAID, SELFPAY ==
--- NOTE | ~2023-10-31 | US_ITS ---
EXAMINATION: ULTRASOUND RENAL WITH DOPPLER CLINICAL INFORMATION: Chronic kidney disease stage III. COMPARISON: None. TECHNIQUE: Real-time grayscale, color Doppler, and duplex Doppler evaluation of the kidneys and renal vasculature was performed. FINDINGS: RENAL MEASUREMENTS: Right: 8.4 x 2.7 x 4.0 cm (Sag x AP x TV) Left: 9.2 x 4.2 x 3.8 cm (Sag x AP x TV) There is increased bilateral renal cortical echotexture. No hydronephrosis or nephrolithiasis. At the upper pole of the right kidney, 8 mm and 6 mm benign, simple cysts are seen, which require no imaging follow-up. DOPPLER INTERROGATION: Aorta: 50 cm/sec Right Main Renal Artery: Proximal: 67 cm/sec Mid: 55 cm/sec Distal: 120 cm/sec Left Main Renal Artery: Proximal: 107 cm/sec Mid: 111 cm/sec Distal: 116 cm/sec Renal-Aortic Ratio (RAR): Right: 2.4 Left: 2.3 Bilateral upper pole, interpolar and lower pole [segmental] arteriolar resistive indices are within normal limits. Bilateral upper pole, interpolar and lower pole [segmental] arteriolar pulse doppler waveforms are unremarkable, with uniformly rapid upstrokes and no parvus et tardus configuration. US/US renal doppler IMPRESSION: No hemodynamically significant stenosis is seen of the bilateral renal arteries.
--- NOTE | ~2023-10-31 | US_ITS ---
EXAMINATION: ULTRASOUND RENAL WITH DOPPLER CLINICAL INFORMATION: Chronic kidney disease stage III. COMPARISON: None. TECHNIQUE: Real-time grayscale, color Doppler, and duplex Doppler evaluation of the kidneys and renal vasculature was performed. FINDINGS: RENAL MEASUREMENTS: Right: 8.4 x 2.7 x 4.0 cm (Sag x AP x TV) Left: 9.2 x 4.2 x 3.8 cm (Sag x AP x TV) There is increased bilateral renal cortical echotexture. No hydronephrosis or nephrolithiasis. At the upper pole of the right kidney, 8 mm and 6 mm benign, simple cysts are seen, which require no imaging follow-up. DOPPLER INTERROGATION: Aorta: 50 cm/sec Right Main Renal Artery: Proximal: 67 cm/sec Mid: 55 cm/sec Distal: 120 cm/sec Left Main Renal Artery: Proximal: 107 cm/sec Mid: 111 cm/sec Distal: 116 cm/sec Renal-Aortic Ratio (RAR): Right: 2.4 Left: 2.3 Bilateral upper pole, interpolar and lower pole [segmental] arteriolar resistive indices are within normal limits. Bilateral upper pole, interpolar and lower pole [segmental] arteriolar pulse doppler waveforms are unremarkable, with uniformly rapid upstrokes and no parvus et tardus configuration. US/US renal BI IMPRESSION: No hemodynamically significant stenosis is seen of the bilateral renal arteries.
[2023-10-31 11:04] LABS: Parathyroid Hormone Intact 61.7 pg/mL (8.7-77.1)
[2023-10-31 11:12] LABS: Appearance Urine Clear; Color Urine Yellow; Glucose Urine UA Negative (Negative); Leukocyte Esterase Urine Moderate (2+) (Negative); Nitrite Urine Negative (Negative); Specific Gravity - Urine 1.015 (1.005-1.025); UMIC TRIGGER UA YES; Urine Blood Negative (Negative); Urine Ketones Negative (Negative); Urine Protein Negative (Neg-Trace)
[2023-10-31 11:15] LABS: Anion Gap 12 (12-20); Blood Urea Nitrogen 44 mg/dL (9-16); Calcium 9.7 mg/dL (8.4-10.2); Carbon Dioxide 22 mmol/L (22-29); Chloride 105 mmol/L (96-108); Estimated Glomerular Filt Rate 32; Phosphorus 3.5 mg/dL (2.7-4.5); Potassium 4.3 mmol/L (3.3-5.1); Sodium 135 mmol/L (135-145)
[2023-10-31 11:18] LABS: Bacteria Urine None Seen (None Seen); Hyaline Casts Urine 0-2 /LPF (0-2); RBC Urine 0-2 /HPF (0-2); Squamous Epithelial Cell Urine 0-2 /HPF (0-2); WBC Urine 21-50 /HPF (0-5)
[2023-10-31 11:23] LABS: Vitamin D 25-OH Total 50.1 ng/mL (>30)
[2023-10-31 12:20] LABS: Creatinine Urine 64.84 mg/dL; Protein/Creatinine Ratio, Ur 0.19 (<0.2); Total Protein Urine Random 12 mg/dL (<12)
[2023-10-31 12:58] LABS: Total Volume 24 Hour Urine 1100 mL
[2023-10-31 13:31] LABS: Creatinine, 24Hr Urine 0.6 G/Day (1.0-2.0); Creatinine, mg/dL 50.45
[2023-10-31 13:51] LABS: Creatinine (CrCl) 1.59 mg/dL (0.5-1.4); Creatinine Clearance 24.2 mL/min (85-125)
[2023-11-04 09:38] LABS: Complement C3 22 mg/dL (83-193)
[2023-11-04 20:59] LABS: Anti DNA DS Antibody <1 IU/mL; Myeloperoxidase Antibody <1.0 AI; Proteinase 3 PR3 Antibodies <1.0 AI
[2023-11-06 11:08] LABS: Anti Nuclear Antibody Screen NEGATIVE (NEGATIVE)
[2023-11-06 12:54] LABS: IgA 327 mg/dL (70-320); IgG 1154 mg/dL (600-1540); IgM 89 mg/dL (50-300)
[2023-11-13 11:34] LABS: Phospholipase A2 IgG ELISA <4 RU/mL; Phospholipase A2 IgG IFA NEGATIVE (NEGATIVE)
== END 2023-10-31 09:17 | disposition home or self-care (01) ==
LOC: HO.US 09:16
PROVIDERS: PCP Family Medicine; Visit Provider Internal Medicine Nephrology
DX: I12.9 Hypertensive chronic kidney disease with stage 1 through stage 4 chronic kidney disease, or unspecified chronic kidney disease (principal); N18.30 Chronic kidney disease, stage 3 unspecified
CPT/HCPCS: 36415; 76775; 80051; 81001; 82306; 82310; 82565; 82570; 82575; 82784; 83520; 83970; 84100; 84156; 84520; 86021; 86038; 86160; 86225; 86255; 86334; 93975

== ENCOUNTER → 2023-11-08 10:30 | Outpatient (BNVA) | payer MEDICARE, SELFPAY | PROVIDERS: PCP Hospitalist; Visit Provider Internal Medicine Nephrology ==

== ENCOUNTER 2023-11-13 10:40 | Outpatient (AMB) | payer MEDICARE, SELFPAY ==
[2023-11-13 10:46] VITALS: BP 158/70; PULSE 86; O2SAT 97; BMI 16.6
--- NOTE | 2023-11-13 10:46 | HO.NEPHOV_ITS ---
HPI HPI Comments History of Present Illness Details I had the privilege of seeing Isabela in follow up for her CKD on a backdrop of long standing hypertension and anemia. She had not been monitoring her BP very closely at home but has been compliant with her medications. She is not a diabetic. She denies Carotid stenosis, CAD, CHF, PAD, PEDRO, CVA, recurrent UTI's, renal stones, hearing deficits, M/S hematuria, joint swellings, photosensitivity, skin rashes, epistaxis, hemoptysis, hemetemesis or melena. She denies new bone or back pain. She doesn't take excess NSAID's. She is not known to have proteinuria. She was on ACEI which was discontinued when she developed JOSE on CKD during her COVID infection. She also has long standing anemia of chronic disease. Her last serum creatinine is stable [facility] Medical History Personal history of nicotine dependence Tubular adenoma of colon (~2008) Anxiety and depression Hypertension, essential Surgical History History of meniscectomy of right knee (~2009) History of esophagogastroduodenoscopy (EGD) History of colonoscopy History of D&C (~2017) History of tubal ligation History of bunionectomy (~2008) Family History Father CVD (cardiovascular disease) Past heart attack Mother Hypertension Arthritis Sister Down syndrome Sister Stroke Daughter Acute asthma Son No problems noted. Social History Housing: Other (no domestic violence) Alcohol intake: current Alcohol intake frequency: holidays/special occasions only Patient Tobacco Use Status: Current everyday Tobacco user Tobacco use type: Cigarette Cigarettes Per Day: 10 Years Smoked: (onset 16yo, 1ppd x 52yrs - 50PYH) e-Cigarette/Vaping Use: Never Used service: No Current occupational status: retired Cognitive needs: No Hearing needs: No Vision needs: Yes Vital Signs 11/13/23 10:46 11/13/23 11:08 Height 5 ft 2.5 in Weight 92 lb BMI 16.6 BP 158/70 H 130/80 Blood Pressure Location Rt brachial Position Sitting Pulse 86 Pulse Source Pulse Oximeter Pulse Oximetry (%) 97 Oxygen Delivery Method Room Air Physical Exam Vital Signs: Last Vital Signs Pulse 86 11/13/23 10:46 BP 130/80 11/13/23 11:08 Pulse Ox 97 11/13/23 10:46 Oxygen Delivery Method Room Air 11/13/23 10:46 BMI result Body Mass Index 16.6 Const General: comfortable and no acute distress Orientation/consciousness: patient oriented x3 HEENT Head: Yes normocephalic Mouth: Normal oral and palatal mucosa present Eyes EOM: EOMs intact bilaterally Neck Neck: Yes supple Resp Auscultation: clear to auscultation bilaterally Cardio Jugular venous distension: no JVD Rate: regular rate GI Palpation (GI): Soft to palpation Auscultation: normal bowel sounds General: Yes no CVA tenderness Back/Spine/Pelvis Back: no CVA tenderness Skin General skin exam: no rashes or lesions noted Neuro General: patient oriented x3 and moves all extremities Extrem General: Yes no pedal edema Assessment & Plan Assessment & Plan (1) CKD (chronic kidney disease) stage 3, GFR 30-59 ml/min: Code(s): N18.30 - Chronic kidney disease, stage 3 unspecified Qualifiers: Chronic kidney disease stage 3 subtype: stage 3a (GFR 45-59) Qualified Code(s): N18.31 - Chronic kidney disease, stage 3a (2) Anemia in chronic kidney disease: Code(s): N18.9 - Chronic kidney disease, unspecified; D63.1 - Anemia in chronic kidney disease Qualifiers: Chronic kidney disease stage: stage 3 (moderate) Chronic kidney disease stage 3 subtype: stage 3b (GFR 30-44) Qualified Code(s): N18.32 - Chronic kidney disease, stage 3b; D63.1 - Anemia in chronic kidney disease Plan Isabela has CKD 3 likely due to long standing hypertension and or vascular disease. She has been on PPI for a long time which also can lead to AIN. She had JOSE on CKD during COVID infection which has been resolved. Her serum creatinine is stable at baseline. Doppler of her renal arteries did not show any renal artery stenosis. She was on ACEI in the past which has been discontinued by her previous Renal MD in [place]. She will be a candidate for ACEI/ARB which I plan to initiate soon , with time, after reviewing her follow up lab data. She may need Jardiance or Farxiga based on evolving data. Her BP needs to be maintained at goal consistently. She will need Procrit once her Hb drifts down to 10 or under, but there is no indication for it now. Further management is pending evolving data. Answered all questions. Follow-up lab work ordered and follow-up appointment given. Orders: Orders IRON PROFILE 11/13/23 N18.30 - Chronic kidney disease, stage 3 unspecified, N18.9 - Chronic kidney disease, unspecified, D63.1 - Anemia in chronic kidney disease Ferritin 11/13/23 N18.30 - Chronic kidney disease, stage 3 unspecified, N18.9 - Chronic kidney disease, unspecified, D63.1 - Anemia in chronic kidney disease Complete Blood Count Auto Diff 11/13/23 N18.30 - Chronic kidney disease, stage 3 unspecified, N18.9 - Chronic kidney disease, unspecified, D63.1 - Anemia in chronic kidney disease Creatinine 11/13/23 N18.30 - Chronic kidney disease, stage 3 unspecified, N18.9 - Chronic kidney disease, unspecified, D63.1 - Anemia in chronic kidney disease Blood Urea Nitrogen 11/13/23 N18.30 - Chronic kidney disease, stage 3 unspecified, N18.9 - Chronic kidney disease, unspecified, D63.1 - Anemia in chronic kidney disease Electrolytes 11/13/23 N18.30 - Chronic kidney disease, stage 3 unspecified, N18.9 - Chronic kidney disease, unspecified, D63.1 - Anemia in chronic kidney disease Coding Level of Care Code Est Pt Level 3 (21108) Diagnoses Stage 3a chronic kidney disease N18.31 Chronic kidney disease stage 3 subtype: stage 3a (GFR 45-59) Anemia in stage 3b chronic kidney disease N18.32; D63.1 Chronic kidney disease stage: stage 3 (moderate) Chronic kidney disease stage 3 subtype: stage 3b (GFR 30-44) Results Reviewed Nephrology Results: Hgb 10.4 g/dl (12.0-16.0) L 07/17/23 WBC 5.8 X10*3/uL (4.8-10.8) 07/17/23 Plt Count 314 X10*3/uL (160-400) 07/17/23 Sodium 135 mmol/L (135-145) 10/31/23 Potassium 4.3 mmol/L (3.3-5.1) 10/31/23 Chloride 105 mmol/L (96-108) 10/31/23 Carbon Dioxide 22 mmol/L (22-29) 10/31/23 BUN 44 mg/dL (9-16) H 10/31/23 Creatinine 1.59 mg/dL (0.5-1.4) H 10/31/23 Calcium 9.7 mg/dL (8.4-10.2) 10/31/23 Phosphorus 3.5 mg/dL (2.7-4.5) 10/31/23 PTH Intact 61.7 pg/mL (8.7-77.1) 10/31/23 Urine Protein Negative mg/dL (Neg-Trace) 10/31/23 Urine Creatinine 64.84 mg/dL 10/31/23 Protein/Creatinin Ratio 0.19 (<0.2) 10/31/23 Renal US 10/31/23
[2023-11-13 11:08] VITALS: BP 130/80
== END 2023-11-13 11:14 | disposition home or self-care (01) ==
PROVIDERS: PCP Hospitalist; Visit Provider Internal Medicine Nephrology
DX: N18.31 Chronic kidney disease, stage 3a (principal); N18.32 Chronic kidney disease, stage 3b; D63.1 Anemia in chronic kidney disease
CPT/HCPCS: 99213

== ENCOUNTER → 2023-11-13 10:40 | Outpatient (BNVA) | payer MEDICARE, MEDICAID, SELFPAY | PROVIDERS: PCP Hospitalist; Visit Provider Internal Medicine Nephrology | DX: N18.32 Chronic kidney disease, stage 3b (principal); D63.1 Anemia in chronic kidney disease | CPT/HCPCS: 99212 ==

== ENCOUNTER 2024-02-12 11:34 | Outpatient (AMB) | payer MEDICARE, SELFPAY ==
--- NOTE | 2024-02-12 11:40 | A.OFFPC_ITS ---
Vital Signs 02/12/24 11:41 Height 5 ft 2.5 in Weight 92 lb 4 oz BMI 16.6 BP 122/78 Blood Pressure Location Lt brachial Position Sitting Pulse 68 Pulse Source Pulse Oximeter Pulse Oximetry (%) 98 Oxygen Delivery Method Room Air Intake Visit Reasons: CPE with f/u labs and health maintenance Intake Note: Patient is here for physical today, to follow up on labs and health maintenance. She is concerned about skin issue that is located everywhere on her body. Allergies No Known Allergies Allergy (Verified 02/12/24 11:45) Medication List - Last Reconciled 02/12/24 by Gopi Chapman MD acetaminophen (Tylenol Extra Strength) 1,000 mg PO Q6H PRN betamethasone dipropionate 0.05% 1 appl topical BID PRN carvedilol 6.25 mg PO BID 30 days cholecalciferol (vitamin D3) 50 mcg PO DAILY clobetasol 0.05% small amount topical 2 times a day; 1 month magnesium oxide 400 mg PO DAILY magnesium oxide mg PO DAILY multivitamin 1 tab PO DAILY omeprazole 20 mg PO DAILY triamcinolone acetonide 0.1% 1 appl topical DAILY triamcinolone-hydrophilic base 0.1 % ea topical Tobacco use date assessed: 02/12/24 Fall risk assessment: No Falls in past year Last assessed Fall Risk: 02/12/24 Dental Screening Dental Screen Date: 02/12/24 Did you have a dental visit in the last 12 months?: Yes Did you have a dental problem in the last 6 months where you did not have access to dental care?: No Was dental information given to patient?: Patient has dentist HPI CPE with f/u labs and health maintenance HPI Details 73 y/o female presents for an extended e xam with f/u labs and health maintenance. No recent labs to review. Blood pressure today 122/78. She is on carvedilol 6.25mg. Ongoing pruritic rash. She notes she has seen dermatology in the past PFSH Medical History Personal history of nicotine dependence Tubular adenoma of colon (~2008) Anxiety and depression Hypertension, essential Surgical History History of meniscectomy of right knee (~2009) History of esophagogastroduodenoscopy (EGD) History of colonoscopy History of D&C (~2017) History of tubal ligation History of bunionectomy (~2008) Family History Father CVD (cardiovascular disease) Past heart attack Mother Hypertension Arthritis Sister Down syndrome Sister Stroke Daughter Acute asthma Son No problems noted. Social History Housing: Other (no domestic violence) Alcohol intake: current Alcohol intake frequency: holidays/special occasions only Patient Tobacco Use Status: Current everyday Tobacco user Tobacco use type: Cigarette Cigarettes Per Day: 10 Years Smoked: (onset 16yo, 1ppd x 52yrs - 50PYH) e-Cigarette/Vaping Use: Never Used service: No Current occupational status: retired Cognitive needs: No Hearing needs: No Vision needs: Yes Questionnaire PHQ-9 Over the last 2 weeks, how often have you been bothered by any of the following problems? 1. Little interest or pleasure in doing things: not at all 2. Feeling down, depressed, or hopeless: not at all 3. Trouble falling or staying asleep, or sleeping too much: not at all 4. Feeling tired or having little energy: not at all 5. Poor appetite or overeating: not at all 6. Feeling bad about yourself - or that you are a failure or have let yourself or your family down: not at all 7. Trouble concentrating on things, such as reading the newspaper or watching television: not at all 8. Moving or speaking so slowly that other people could have noticed. Or the opposite - being so fidgety or restless that you have been moving around a lot more than usual: not at all 9. Thoughts that you would be better off or of hurting yourself in some way: not at all Total score: 0 Depression Screening Interpretation: Negative Depression Screening Done: Yes 77832 - PHQ-9 Billing: Yes Source: Developed by Drs. Elio Arriaza, Lay Ward, Chan Cyr and colleagues, with an educational meghan from [employer]. Thrive Questionnaire Date Thrive assessed: 02/12/24 I am a: Patient What is your living situation today?: I have a steady place to live Within the past 12 months, did the food you bought not last and you didn't have the money to get more?: Never true Within the past 12 months, did you worry whether your food would run out before you got money to buy more?: Never true Do you have trouble paying for medicines?: No Do you have trouble getting transportation to medical appointments?: No Do you have trouble paying your heating and electricity bill?: No Do you have trouble taking care of your child, family member or friend?: No Do you have trouble with day-to-day activities such as bathing, preparing meals, shopping, managing finances, etc.?: No Are you currently unemployed and looking for a job?: No Are you interested in more education?: No THRIVE Score: 0 AUDIT C Alcohol Use Questionnaire (AUDIT-C) 1. How often do you have a drink containing alcohol?: Monthly or less 2. How many drinks containing alcohol do you have on a typical day when you are drinking?: 3 or 4 3. How often do you have six or more drinks on one occasion?: Never Total Score: 2 STELLA-7 AMB Questionnaire STELLA-7 Date STELLA - 7 assessed: 02/12/24 Feeling nervous, anxious, or on edge: 0 = Not at all Not being able to stop or control worryin = Not at all Worrying too much about different things: 0 = Not at all Trouble relaxin = Not at all Being so restless that it is hard to sit still: 0 = Not at all Becoming easily annoyed or irritable: 0 = Not at all Feeling afraid as if something awful might happen: 0 = Not at all Total STELLA-7 score (0-4 normal; 5-9 mild; 10-14 moderate; 15-21 severe): 0 Source: Developed by Drs. Elio Arriaza, Lay Ward, Chan Cyr and colleagues, with an educational meghan from [employer]. STELLA-7 Assessment Billing STELLA-7 Assessment Tool: STELLA-7 Assessment [id number] Review of Systems Const Denies chills, Denies fatigue, Denies fever(s), Denies headache(s) and Denies weakness Eyes Denies change in vision ENT Denies dizziness and Denies headache(s) Card Denies chest pain, Denies lightheadedness, Denies dyspnea and Denies other (Palpitations) Resp Denies cough, Denies dyspnea, Denies wheezing and Denies other ( shortness of breath) GI Denies abdominal pain, Denies melena, Denies hematochezia, Denies change in bowel habits, Denies dyspepsia and Denies nausea Denies hematuria and Denies dysuria Musc Denies numbness and Denies tingling Skin/Breast Reports rash, Denies unusual bruising and Denies wounds Neuro Denies dizziness, Denies headache(s), Denies numbness, Denies Sensory deficit (Neuro), Denies tingling, Denies paresthesias and Denies weakness Psych Denies anxiety and Denies depression Endo Denies fatigue Jose David/Lymph Denies easy bleeding and Denies easy bruising Aller/Immun Denies wheezing Physical exam (Primary Care) Vital Signs: Last Vital Signs Pulse 68 02/12/24 11:41 BP 122/78 02/12/24 11:41 Pulse Ox 98 02/12/24 11:41 Oxygen Delivery Method Room Air 02/12/24 11:41 BMI result Body Mass Index 16.6 Tobacco/Smoking Status: Tobacco use Status Tobacco use date assessed 02/12/24 02/12/24 11:48 Patient Tobacco Use Status Current everyday Tobacco 02/12/24 11:48 Tobacco use type Cigarette 02/12/24 11:48 e-Cigarette/Vaping Use Never Used 02/12/24 11:48 PHQ-9: PHQ-9 Score PHQ-9: Total score 0 02/12/24 12:14 Depression Screening Interpretation: Negative Thrive Assessment: Date of Thrive Assessment Date Thrive assessed 02/12/24 02/12/24 12:04 Const General: no acute distress and well developed Nutritional Appearance: well nourished Orientation/consciousness: patient oriented x3 HENMT Head: Yes normocephalic and Yes atraumatic Ears: hearing grossly normal bilaterally and TM's normal bilaterally General nose exam: Normal external nose present and Normal nares present Mouth: Normal oral and palatal mucosa present and moist mucous membranes Teeth and gingiva: dentition normal Throat: Yes posterior oropharynx normal Eyes General: appearance normal, both eyes and all related structures Pupils: Equal, round and reactive pupils present EOM: EOMs intact bilaterally Neck Neck: Yes normal visual inspection, Yes no lymphadenopathy and Yes trachea midline Thyroid: Thyroid normal Carotids: no bruits Lymphatic: no lymphadenopathy noted Chest Chest palpation & inspection: normal inspection of the chest Resp Effort & Inspection: normal respiratory effort Auscultation: clear to auscultation bilaterally Cardio Rate: regular rate Rhythm: regular rhythm Heart sounds: S1 normal heart sound present, S2 normal heart sound present, no gallops, no murmurs and no rubs Bruits: no abdominal aortic bruits and no carotid bruits GI Palpation (GI): No Abdominal aortic bruit present, Soft to palpation, nontender, No hepatosplenomegaly present and No Rebound tenderness present Auscultation: normal bowel sounds General: Yes no CVA tenderness Back/Spine/Pelvis Back: no CVA tenderness Cervical Spine: cervical ROM normal and No Cervical spine tenderness Thoracic/Lumbar Spine: thoraco-lumbar ROM normal, No pain with thoraco-lumbar ROM, No thoracic spinal tenderness and No lumbar spinal tenderness Skin Lesions: no lesions Rashes: no rashes Trauma: no lacerations or abrasions Wounds: no wounds Nails: normal Neuro General: patient oriented x3 and gait normal Cranial nerves: Yes Equal, round and reactive pupils present Cognition (Neuro): normal cognition Gait exam (Neuro): Normal gait present Motor exam (neuro): 5/5 motor strength present throughout Sensory Exam: No Sensory deficit (Neuro) Deep tendon reflexes (DTR's): Right patellar reflex intensity grade: 2+ and Left patellar reflex intensity grade: 2+ Extrem General: Yes normal to inspection and No edema Psych Appearance: grossly normal Affect: normal affect Attitude: cooperative Thought process: Normal thought process present Assessment and Plan Assessment & Plan (1) Hypertension, essential: Code(s): I10 - Essential (primary) hypertension Plan: Blood?pressure?is?controlled.??Goal?is?less?than?140/90 Continue?current?medication?regimen (2) Pruritic rash: Code(s): L28.2 - Other prurigo Plan: Ongoing?pruritic?rash?which?appears?to?be?a?contact?dermatitis Will?give?her?scripts?for?betamethasone?lotion?in?her?scalp?and?cream?on?her?ski n Also?advising?Zyrtec She? 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 Up-to-date?and?will?be?due?again?in?a?year (4) Screening for colon cancer: Code(s): Z12.11 - Encounter for screening for malignant neoplasm of colon Plan: Followed[facility]by[facility]ology[facility]at[facility] Follow-up?with?[facility]?as?recommended (5) Breast cancer screening by mammogram: Code(s): Z12.31 - Encounter for screening mammogram for malignant neoplasm of breast Plan: Patient?declines?mammograms. No?first-degree?relatives?or?strong?risk?factors?for?breast?cancer. No?abnormal?mammograms?in?the?past She?performs?at?home?breast?e xams?and?will?let?me?know?if?she?has?any?problems?or?concerns (6) CKD (chronic kidney disease) stage 3, GFR 30-59 ml/min: Code(s): N18.30 - Chronic kidney disease, stage 3 unspecified Qualifiers: Chronic kidney disease stage 3 subtype: stage 3a (GFR 45-59) Qualified Code(s): N18.31 - Chronic kidney disease, stage 3a Plan: Stable Follow-up?with?nephrology?as?recommended (7) Adult general medical exam: Code(s): Z00.00 - Encounter for general adult medical examination without abnormal findings Plan: 73-year-old?female?presents?for?an?extended?exam Orders: Referrals Dermatology Referral L28.2 - Other prurigo Medications: New cetirizine (All Day Allergy (cetirizine)) 10 mg PO DAILY 90 days PRN 90 tabs 3RF allergy symptoms betamethasone dipropionate 0.05% 1 appl topical BID 30 days PRN 60 grams 2RF skin irritation Refilled betamethasone dipropionate 0.05% 1 appl topical BID PRN 45 grams 1RF itching L21.9 - Seborrheic dermatitis, unspecified Coding Level of Care Code Est Pt Level 4 (21894) Diagnoses Hypertension, essential I10 Pruritic rash L28.2 Screening for osteoporosis Z13.820 Screening for colon cancer Z12.11 Breast cancer screening by mammogram Z12.31 Stage 3a chronic kidney disease N18.31 Chronic kidney disease stage 3 subtype: stage 3a (GFR 45-59) Adult general medical exam Z00.00 Additional Codes STELLA-7 Assessment Billing - STELLA-7 Assessment Tool: STELLA-7 Assessment [id number] ([id number])
[2024-02-12 11:41] VITALS: BP 122/78; PULSE 68; O2SAT 98; BMI 16.6
== END 2024-02-12 13:50 | disposition home or self-care (01) ==
PROVIDERS: PCP Family Medicine; Visit Provider Family Medicine
DX: Z00.00 Encounter for general adult medical examination without abnormal findings (principal); I12.9 Hypertensive chronic kidney disease with stage 1 through stage 4 chronic kidney disease, or unspecified chronic kidney disease; N18.31 Chronic kidney disease, stage 3a; L28.2 Other prurigo; Z13.820 Encounter for screening for osteoporosis; Z12.11 Encounter for screening for malignant neoplasm of colon; Z12.31 Encounter for screening mammogram for malignant neoplasm of breast
CPT/HCPCS: 99213; 99397

== ENCOUNTER 2024-03-24 06:41 | Outpatient (REF) | payer MEDICARE, SELFPAY ==
[2024-03-24 06:53] LABS: MANUAL DIFF FLAG NO
[2024-03-24 08:07] LABS: Basophils Absolute Auto 0.1 X10*3/uL (0.0-0.2); Basophils Percent Auto 0.6 % (0-2); Eosinophils Absolute Auto 0.2 X10*3/uL (0.0-0.4); Eosinophils Percent Auto 1.7 % (0-4); Hematocrit 32.4 % (37.0-47.0); Hemoglobin 10.9 g/dl (12.0-16.0); Imm Gran Abs Auto 0.04 X10*3/uL (0.00-0.03); Imm Gran Pct Auto 0.4 % (0.0-0.4); Lymphocytes Absolute Auto 1.1 X10*3/uL (1.2-4.9); Lymphocytes Percent Auto 12.2 % (20-40); Mean Corpuscular HGB Conc 33.6 g/dl (31.0-35.0); Mean Corpuscular Hemoglobin 33.3 pg (27.0-33.0); Mean Corpuscular Volume 99.1 fL (80.0-98.0); Mean Platelet Volume 10.4 fL (9.4-12.3); Monocytes Absolute Auto 1.2 X10*3/uL (0.1-1.2); Monocytes Percent Auto 13.7 % (2-11); Neutrophils Absolute Auto 6.4 x10*3/uL (2.0-8.3); Neutrophils Percent Auto 71.4 % (45-73); Platelet Count 299 X10*3/uL (160-400); Red Blood Count 3.27 X10*6/uL (4.20-5.50); Red Cell Distribution Width 13.9 % (11.0-16.0)
[2024-03-24 08:52] LABS: Appearance Urine Clear; Color Urine Yellow; Glucose Urine UA Negative (Negative); Leukocyte Esterase Urine Small (1+) (Negative); Nitrite Urine Negative (Negative); PH 6.5 (5.0-9.0); Specific Gravity - Urine 1.015 (1.005-1.025); UMIC TRIGGER UA YES; Urine Blood Negative (Negative); Urine Ketones Negative (Negative); Urine Protein 30 (1+) mg/dL (Neg-Trace)
[2024-03-24 08:52] LABS: Alanine Aminotransferase 10 U/L (0-31); Albumin Level 4.4 g/dL (3.5-5.0); Alkaline Phosphatase 59 U/L (39-117); Anion Gap 15 (12-20); Aspartate Amino Transferase 17 U/L (5-31); Bilirubin Total 0.6 mg/dL (0.0-1.0); Blood Urea Nitrogen 59 mg/dL (9-16); Calcium 10.2 mg/dL (8.4-10.2); Carbon Dioxide 23 mmol/L (22-29); Chloride 101 mmol/L (96-108); Cholesterol 194 mg/dL (<200); Estimated Glomerular Filt Rate 30; Glucose Fasting 118 mg/dL (60-99); HDL Cholesterol 82 mg/dL (>40); Iron 41 mcg/dL (30-160); LDL Cholesterol Calculated 95 mg/dL (<100); Magnesium 1.9 mg/dL (1.6-2.6); Percent Iron Saturation 13 % (15-50); Potassium 4.2 mmol/L (3.3-5.1); Sodium 135 mmol/L (135-145); Total Iron Binding Capacity 322 mcg/dL (228-428); Total Protein 7.9 g/dL (6.5-8.0); Triglycerides 85 mg/dL (<150); Unsaturated Iron Binding 281 ug/dL
[2024-03-24 08:54] LABS: Iron 41 mcg/dL (30-160); Percent Iron Saturation 13 % (15-50); Total Iron Binding Capacity 322 mcg/dL (228-428); Unsaturated Iron Binding 281 ug/dL
[2024-03-24 09:00] LABS: TSH reflex Free T4 1.34 uIU/mL (0.32-4.0)
[2024-03-24 09:05] LABS: Bacteria Urine None Seen (None Seen); Hyaline Casts Urine 0-2 /LPF (0-2); RBC Urine 0-2 /HPF (0-2)
[2024-03-24 09:09] LABS: Ferritin 192 ng/mL (10-250)
[2024-03-24 09:10] LABS: Folate 8.2 ng/mL (> or = 4.0); Vitamin B12 343 pg/mL (200-900)
[2024-03-24 09:45] LABS: Creatinine Urine 69.84 mg/dL; Microalbum/Creatinine Ratio Ur 154.6 ug/mg cr (<30)
== END 2024-03-24 06:42 | disposition home or self-care (01) ==
LOC: HO.LAB 06:41
PROVIDERS: PCP Family Medicine; Visit Provider Internal Medicine Nephrology
DX: Z00.00 Encounter for general adult medical examination without abnormal findings (principal); I12.9 Hypertensive chronic kidney disease with stage 1 through stage 4 chronic kidney disease, or unspecified chronic kidney disease; N18.30 Chronic kidney disease, stage 3 unspecified; D63.1 Anemia in chronic kidney disease; E55.9 Vitamin D deficiency, unspecified; E53.8 Deficiency of other specified B group vitamins; R51.9 Headache, unspecified; N18.32 Chronic kidney disease, stage 3b
CPT/HCPCS: 36415; 80053; 80061; 81001; 82043; 82306; 82570; 82607; 82728; 82746; 83540; 83735; 84443; 85025

== ENCOUNTER 2024-04-01 11:29 | Outpatient (AMB) | payer MEDICARE, SELFPAY ==
[2024-04-01 11:31] VITALS: BP 120/70; PULSE 64; O2SAT 100; BMI 16.4
--- NOTE | 2024-04-01 11:31 | HO.NEPHOV_ITS ---
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 She had not been monitoring her BP very closely at home but has been compliant with her medications. She is not a diabetic. She denies Carotid stenosis, CAD, CHF, PAD, PEDRO, CVA, recurrent UTI's, renal stones, hearing deficits, M/S hematuria, joint swellings, photosensitivity, skin rashes, epistaxis, hemoptysis, hemetemesis or melena. She denies new bone or back pain. She doesn't take excess NSAID's. She is not known to have proteinuria. She was on ACEI which was discontinued when she developed JOSE on CKD during her COVID infection. She also has long standing anemia of chronic disease. Her last serum creatinine had been stable [facility] Medical History Personal history of nicotine dependence Tubular adenoma of colon (~2008) Anxiety and depression Hypertension, essential Surgical History History of meniscectomy of right knee (~2009) History of esophagogastroduodenoscopy (EGD) History of colonoscopy History of D&C (~2017) History of tubal ligation History of bunionectomy (~2008) Family History Father CVD (cardiovascular disease) Past heart attack Mother Hypertension Arthritis Sister Down syndrome Sister Stroke Daughter Acute asthma Son No problems noted. Social History Housing: Other (no domestic violence) Alcohol intake: current Alcohol intake frequency: holidays/special occasions only Patient Tobacco Use Status: Current everyday Tobacco user Tobacco use type: Cigarette Cigarettes Per Day: 10 Years Smoked: (onset 16yo, 1ppd x 52yrs - 50PYH) e-Cigarette/Vaping Use: Never Used service: No Current occupational status: retired Cognitive needs: No Hearing needs: No Vision needs: Yes Physical Exam Vital Signs: Last Vital Signs Pulse 64 04/01/24 11:31 BP 164/70 H 04/01/24 11:31 Pulse Ox 100 04/01/24 11:31 Oxygen Delivery Method Room Air 04/01/24 11:31 BMI result Body Mass Index 16.4 Const General: comfortable and no acute distress Orientation/consciousness: patient oriented x3 HEENT Head: Yes normocephalic Mouth: Normal oral and palatal mucosa present Eyes EOM: EOMs intact bilaterally Neck Neck: Yes supple Resp Auscultation: clear to auscultation bilaterally Cardio Jugular venous distension: no JVD Rate: regular rate GI Palpation (GI): Soft to palpation Auscultation: normal bowel sounds General: Yes no CVA tenderness Back/Spine/Pelvis Back: no CVA tenderness Skin General skin exam: no rashes or lesions noted Neuro General: patient oriented x3 and moves all extremities Extrem General: Yes no pedal edema Results Reviewed Nephrology Results: Hgb 10.9 g/dl (12.0-16.0) L 03/24/24 WBC 9.0 X10*3/uL (4.8-10.8) 03/24/24 Plt Count 299 X10*3/uL (160-400) 03/24/24 Sodium 135 mmol/L (135-145) 03/24/24 Potassium 4.2 mmol/L (3.3-5.1) 03/24/24 Chloride 101 mmol/L (96-108) 03/24/24 Carbon Dioxide 23 mmol/L (22-29) 03/24/24 BUN 59 mg/dL (9-16) H 03/24/24 Creatinine 1.66 mg/dL (0.5-1.4) H 03/24/24 Calcium 10.2 mg/dL (8.4-10.2) 03/24/24 Phosphorus 3.5 mg/dL (2.7-4.5) 10/31/23 PTH Intact 61.7 pg/mL (8.7-77.1) 10/31/23 Urine Protein 30 (1+) mg/dL (Neg-Trace) H 03/24/24 Urine Creatinine 69.84 mg/dL 03/24/24 Protein/Creatinin Ratio 0.19 (<0.2) 10/31/23 Renal US 10/31/23 Assessment & Plan Assessment & Plan (1) Anemia in chronic kidney disease: Code(s): N18.9 - Chronic kidney disease, unspecified; D63.1 - Anemia in chronic kidney di sease Category: Medical Qualifiers: Chronic kidney disease stage: stage 3 (moderate) Chronic kidney disease stage 3 subtype: stage 3b (GFR 30-44) Qualified Code(s): N18.32 - Chronic kidney disease, stage 3b; D63.1 - Anemia in chronic kidney disease (2) CKD (chronic kidney disease) stage 3, GFR 30-59 ml/min: Code(s): N18.30 - Chronic kidney disease, stage 3 unspecified Category: Medical Qualifiers: Chronic kidney disease stage 3 subtype: stage 3a (GFR 45-59) Qualified Code(s): N18.31 - Chronic kidney disease, stage 3a (3) Hypertension, essential: Code(s): I10 - Essential (primary) hypertension Category: Medical Plan Isabela has CKD 3 likely due to long standing hypertension and or vascular di sease. She has been on PPI for a long time which also can lead to AIN. She had JOSE on CKD during COVID infection which has been resolved. Her serum creatinine had been stable at baseline. Doppler of her renal arteries did not show any renal artery stenosis. She was on ACEI in the past which has been discontinued by her previous Renal MD in [place]. She will be a candidate for ACEI/ARB which I plan to initiate soon , with time, after reviewing her follow up lab data. She may need Jardiance or Farxiga based on evolving data. Her BP needs to be maintained at goal consistently. She will need Procrit once her Hb drifts down to 10 or under, but there is no indication for it now. I asked to take Iron tablets daily. Further management is pending evolving data. Answered all questions. Follow-up lab work ordered and follow-up appointment given. Orders: Orders Complete Blood Count Auto Diff Today D63.1 - Anemia in chronic kidney disease, I10 - Essential (primary) hypertension, N18.31 - Chronic kidney disease, stage 3a, N18.32 - Chronic kidney disease, stage 3b Creatinine Today D63.1 - Anemia in chronic kidney disease, I10 - Essential (primary) hypertension, N18.31 - Chronic kidney disease, stage 3a, N18.32 - Chronic kidney disease, stage 3b Blood Urea Nitrogen Today D63.1 - Anemia in chronic kidney disease, I10 - Essential (primary) hypertension, N18.31 - Chronic kidney disease, stage 3a, N18.32 - Chronic kidney disease, stage 3b Electrolytes Today D63.1 - Anemia in chronic kidney disease, I10 - Essential (primary) hypertension, N18.31 - Chronic kidney disease, stage 3a, N18.32 - Chronic kidney disease, stage 3b Coding Level of Care Code Est Pt Level 4 (04772) Diagnoses Anemia in stage 3b chronic kidney disease N18.32; D63.1 Chronic kidney disease stage: stage 3 (moderate) Chronic kidney disease stage 3 subtype: stage 3b (GFR 30-44) Stage 3a chronic kidney disease N18.31 Chronic kidney disease stage 3 subtype: stage 3a (GFR 45-59) Hypertension, essential I10
== END 2024-04-01 11:46 | disposition home or self-care (01) ==
LOC: HO.HKAS 11:29
PROVIDERS: PCP Family Medicine; Visit Provider Internal Medicine Nephrology
DX: N18.32 Chronic kidney disease, stage 3b (principal); D63.1 Anemia in chronic kidney disease; N18.31 Chronic kidney disease, stage 3a; I10 Essential (primary) hypertension
CPT/HCPCS: 99214

== ENCOUNTER → 2024-04-01 11:29 | Outpatient (BNVA) | payer MEDICARE, SELFPAY | PROVIDERS: PCP Family Medicine; Visit Provider Internal Medicine Nephrology | DX: I12.9 Hypertensive chronic kidney disease with stage 1 through stage 4 chronic kidney disease, or unspecified chronic kidney disease (principal); N18.32 Chronic kidney disease, stage 3b; D63.1 Anemia in chronic kidney disease | CPT/HCPCS: 99212 ==

== ENCOUNTER 2024-08-24 07:11 | Outpatient (REF) | payer MEDICARE, SELFPAY ==
[2024-08-24 07:33] LABS: MANUAL DIFF FLAG NO
[2024-08-24 08:26] LABS: Basophils Absolute Auto 0.1 X10*3/uL (0.0-0.2); Eosinophils Absolute Auto 0.2 X10*3/uL (0.0-0.4); Eosinophils Percent Auto 3.5 % (0-4); Hematocrit 31.8 % (37.0-47.0); Hemoglobin 10.7 g/dl (12.0-16.0); Imm Gran Abs Auto 0.04 X10*3/uL (0.00-0.03); Imm Gran Pct Auto 0.8 % (0.0-0.4); Lymphocytes Absolute Auto 1.4 X10*3/uL (1.2-4.9); Lymphocytes Percent Auto 30.1 % (20-40); Mean Corpuscular HGB Conc 33.6 g/dl (31.0-35.0); Mean Corpuscular Hemoglobin 34.5 pg (27.0-33.0); Mean Corpuscular Volume 102.6 fL (80.0-98.0); Mean Platelet Volume 9.7 fL (9.4-12.3); Monocytes Absolute Auto 0.8 X10*3/uL (0.1-1.2); Monocytes Percent Auto 16.1 % (2-11); Neutrophils Absolute Auto 2.3 x10*3/uL (2.0-8.3); Neutrophils Percent Auto 48.5 % (45-73); Platelet Count 240 X10*3/uL (160-400); Red Cell Distribution Width 16.4 % (11.0-16.0); White Blood Count 4.8 X10*3/uL (4.8-10.8)
[2024-08-24 08:45] LABS: Anion Gap 14 (12-20); Blood Urea Nitrogen 35 mg/dL (9-16); Carbon Dioxide 24 mmol/L (22-29); Chloride 101 mmol/L (96-108); Estimated Glomerular Filt Rate 37; Potassium 3.9 mmol/L (3.3-5.1); Sodium 135 mmol/L (135-145)
[2024-08-24 09:56] LABS: Appearance Urine Clear; Color Urine Yellow; Glucose Urine UA Negative (Negative); Leukocyte Esterase Urine Small (1+) (Negative); Nitrite Urine Negative (Negative); Specific Gravity - Urine 1.015 (1.005-1.025); UMIC TRIGGER UA YES; Urine Blood Negative (Negative); Urine Ketones Negative (Negative); Urine Protein Trace mg/dL (Neg-Trace)
[2024-08-24 10:01] LABS: Bacteria Urine None Seen (None Seen); Hyaline Casts Urine 0-2 /LPF (0-2); RBC Urine 0-2 /HPF (0-2); WBC Urine 21-50 /HPF (0-5)
== END 2024-08-24 07:12 | disposition home or self-care (01) ==
LOC: HO.LAB 07:11
PROVIDERS: PCP Family Medicine; Visit Provider Internal Medicine Nephrology
DX: Z00.00 Encounter for general adult medical examination without abnormal findings (principal); I12.9 Hypertensive chronic kidney disease with stage 1 through stage 4 chronic kidney disease, or unspecified chronic kidney disease; D63.1 Anemia in chronic kidney disease; N18.32 Chronic kidney disease, stage 3b; N18.31 Chronic kidney disease, stage 3a; N18.30 Chronic kidney disease, stage 3 unspecified; N18.9 Chronic kidney disease, unspecified
CPT/HCPCS: 36415; 80051; 81001; 81003; 82565; 84520; 85025

== ENCOUNTER 2024-08-26 12:12 | Outpatient (AMB) | payer MEDICARE, SELFPAY ==
--- NOTE | 2024-08-26 12:14 | HO.NEPHOV ---
Vital Signs 08/26/24 12:15 Height 5 ft 2.5 in Weight 87 lb 6 oz BMI 15.7 BP 120/70 Blood Pressure Location Lt brachial Position Sitting Intake Visit Reasons: 4 mo fu w/labs/ Conf Instrumentation Engineer Required: No Accompanied by: Self / Same As Patient Allergies No Known Allergies Allergy (Verified 08/26/24 12:15) HPI Comments Details: Isabela was seen in follow up for her CKD on a backdrop of long standing hypertension and anemia. She is not a diabetic. She denies Carotid stenosis, CAD, CHF, PAD, PEDRO, CVA, recurrent UTI's, renal stones, hearing deficits, M/S hematuria, joint swellings, photosensitivity, skin rashes, epistaxis, hemoptysis, hemetemesis or melena. She denies new bone or back pain. She doesn't take excess NSAID's. She is not known to have proteinuria. She was on ACEI which was discontinued when she developed JOSE on CKD during her COVID infection. She also has long standing anemia of chronic disease. Her last serum creatinine had been stable [facility] Medical History (Reviewed 02/12/24 @ 11:47 by Sophy Sam [facility]) Personal history of nicotine dependence Tubular adenoma of colon (~2008) Anxiety and depression Hypertension, essential Surgical History History of meniscectomy of right knee (~2009) History of esophagogastroduodenoscopy (EGD) History of colonoscopy History of D&C (~2017) History of tubal ligation History of bunionectomy (~2008) Family History Father CVD (cardiovascular disease) Past heart attack Mother Hypertension Arthritis Sister Down syndrome Sister Stroke Daughter Acute asthma Son No problems noted. Social History Housing: Other (no domestic violence) Alcohol intake: current Alcohol intake frequency: holidays/special occasions only Patient Tobacco Use Status: Current everyday Tobacco user Tobacco use type: Cigarette Cigarettes Per Day: 10 Years Smoked: (onset 16yo, 1ppd x 52yrs - 50PYH) e-Cigarette/Vaping Use: Never Used service: No Current occupational status: retired Cognitive needs: No Hearing needs: No Vision needs: Yes Review of Systems Const All systems reviewed & are unremarkable except as noted in HPI and below Physical Exam Vital Signs: Last Vital Signs BP 120/70 08/26/24 12:15 BMI result Body Mass Index 15.7 Const General: comfortable and no acute distress Orientation/consciousness: patient oriented x3 HEENT Head: Yes normocephalic Mouth: Normal oral and palatal mucosa present Eyes EOM: EOMs intact bilaterally Neck Neck: Yes supple Resp Auscultation: clear to auscultation bilaterally Cardio Jugular venous distension: no JVD Rate: regular rate GI Palpation (GI): Soft to palpation Auscultation: normal bowel sounds General: Yes no CVA tenderness Back/Spine/Pelvis Back: no CVA tenderness Skin General skin exam: no rashes or lesions noted Neuro General: patient oriented x3 and moves all extremities Extrem General: Yes no pedal edema Results Reviewed Nephrology Results: Hgb 10.7 g/dl (12.0-16.0) L 08/24/24 WBC 4.8 X10*3/uL (4.8-10.8) 08/24/24 Plt Count 240 X10*3/uL (160-400) 08/24/24 Sodium 135 mmol/L (135-145) 08/24/24 Potassium 3.9 mmol/L (3.3-5.1) 08/24/24 Chloride 101 mmol/L (96-108) 08/24/24 Carbon Dioxide 24 mmol/L (22-29) 08/24/24 BUN 35 mg/dL (9-16) H 08/24/24 Creatinine 1.40 mg/dL (0.5-1.4) 08/24/24 Calcium 10.2 mg/dL (8.4-10.2) 03/24/24 Phosphorus 3.5 mg/dL (2.7-4.5) 10/31/23 PTH Intact 61.7 pg/mL (8.7-77.1) 10/31/23 Urine Protein Trace mg/dL (Neg-Trace) 08/24/24 Urine Creatinine 69.84 mg/dL 03/24/24 Protein/Creatinin Ratio 0.19 (<0.2) 10/31/23 Renal US 10/31/23 Assessment & Plan Assessment & Plan (1) CKD (chronic kidney disease) stage 3, GFR 30-59 ml/min: Code(s): N18.30 - Chronic kidney disease, stage 3 unspecified Category: Medical Qualifiers: Chronic kidney disease stage 3 subtype: stage 3a (GFR 45-59) Qualified Code(s): N18.31 - Chronic kidney disease, stage 3a (2) Anemia in chronic kidney disease: Code(s): N18.9 - Chronic kidney disease, unspecified; D63.1 - Anemia in chronic kidney disease Category: Medical Qualifiers: Chronic kidney disease stage: stage 3 (moderate) Chronic kidney disease stage 3 subtype: stage 3b (GFR 30-44) Qualified Code(s): N18.32 - Chronic kidney disease, stage 3b; D63.1 - Anemia in chronic kidney disease Plan Isabela has CKD 3 likely due to long standing hypertension and or vascular disease. Her serum creatinine had been stable at baseline. Doppler of her renal arteries did not show any renal artery stenosis. She was on ACEI in the past which has been discontinued by her previous Renal MD in [place]. She may need Jardiance . Her BP needs to be maintained at goal consistently. She will need Procrit once her Hb drifts down to 10 or under, but there is no indication for it now. I asked to take Iron tablets daily. Follow-up lab work ordered and follow-up appointment given Orders: Orders Creatinine 6 Months D63.1 - Anemia in chronic kidney disease, N18.31 - Chronic kidney disease, stage 3a, N18.32 - Chronic kidney disease, stage 3b Blood Urea Nitrogen 6 Months D63.1 - Anemia in chronic kidney disease, N18.31 - Chronic kidney disease, stage 3a, N18.32 - Chronic kidney disease, stage 3b Electrolytes 6 Months D63.1 - Anemia in chronic kidney disease, N18.31 - Chronic kidney disease, stage 3a, N18.32 - Chronic kidney disease, stage 3b Coding Level of Care Code Est Pt Level 4 (51521) Diagnoses Stage 3a chronic kidney disease N18.31 Chronic kidney disease stage 3 subtype: stage 3a (GFR 45-59) Anemia in stage 3b chronic kidney disease N18.32; D63.1 Chronic kidney disease stage: stage 3 (moderate) Chronic kidney disease stage 3 subtype: stage 3b (GFR 30-44)
[2024-08-26 12:15] VITALS: BP 120/70; BMI 15.7
== END 2024-08-26 12:35 | disposition home or self-care (01) ==
LOC: HO.HKA 12:12
PROVIDERS: PCP Family Medicine; Visit Provider Internal Medicine Nephrology
DX: N18.32 Chronic kidney disease, stage 3b (principal); D63.1 Anemia in chronic kidney disease
CPT/HCPCS: 99214

== ENCOUNTER → 2024-08-26 12:12 | Outpatient (BNVA) | payer MEDICARE, SELFPAY | PROVIDERS: PCP Family Medicine; Visit Provider Internal Medicine Nephrology | DX: I12.9 Hypertensive chronic kidney disease with stage 1 through stage 4 chronic kidney disease, or unspecified chronic kidney disease (principal); N18.30 Chronic kidney disease, stage 3 unspecified; D63.1 Anemia in chronic kidney disease | CPT/HCPCS: 99212 ==

== ENCOUNTER 2025-04-12 07:35 | Outpatient (REF) | payer MEDICARE, SELFPAY ==
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
[2025-04-12 09:46] LABS: Anion Gap 13 (12-20); Blood Urea Nitrogen 31 mg/dL (9-16); Carbon Dioxide 24 mmol/L (22-29); Chloride 103 mmol/L (96-108); Estimated Glomerular Filt Rate 36; Potassium 3.8 mmol/L (3.3-5.1); Sodium 136 mmol/L (135-145)
== END 2025-04-12 07:36 | disposition home or self-care (01) ==
LOC: HO.LAB 07:35
PROVIDERS: PCP Family Medicine; Visit Provider Internal Medicine Nephrology
DX: N18.31 Chronic kidney disease, stage 3a (principal); D63.1 Anemia in chronic kidney disease
CPT/HCPCS: 36415; 80051; 82565; 84520

== ENCOUNTER 2025-04-14 15:44 | Outpatient (AMB) | payer MEDICARE, SELFPAY ==
--- NOTE | 2025-04-14 15:46 | HO.NEPHOV ---
Vital Signs 04/14/25 15:47 04/14/25 15:56 Height 5 ft 2.5 in Weight 87 lb 6 oz BMI 15.7 BP 140/70 H 132/72 Blood Pressure Location Rt brachial Position Sitting Pulse 77 Pulse Oximetry (%) 98 Oxygen Delivery Method Room Air Intake Visit Reasons: Anemia in CKD-LVM [place] Department Operator Required: No Accompanied by: Self / Same As Patient Allergies No Known Allergies Allergy (Verified 08/26/24 12:15) Do you need a note to return to daycare/school/sports/work: No HPI Comments Details: Isabela was seen in follow up for her CKD on a backdrop of long standing hypertension and anemia. She is not a diabetic. She denies Carotid stenosis, CAD, CHF, PAD, PEDRO, CVA, recurrent UTI's, renal stones, hearing deficits, M/S hematuria, joint swellings, photosensitivity, skin rashes, epistaxis, hemoptysis, hemetemesis or melena. She denies new bone or back pain. She doesn't take excess NSAID's. She is not known to have proteinuria. She was on ACEI which was discontinued when she developed JOSE on CKD during her COVID infection. She also has long standing anemia of chronic disease. Her last serum creatinine had been stable [facility] Medical History Personal history of nicotine dependence Tubular adenoma of colon (~2008) Anxiety and depression Hypertension, essential Surgical History History of meniscectomy of right knee (~2009) History of esophagogastroduodenoscopy (EGD) History of colonoscopy History of D&C (~2017) History of tubal ligation History of bunionectomy (~2008) Family History Father CVD (cardiovascular disease) Past heart attack Mother Hypertension Arthritis Sister Down syndrome Sister Stroke Daughter Acute asthma Son No problems noted. Social History Housing: Other Alcohol intake: current Alcohol intake frequency: holidays/special occasions only Patient Tobacco Use Status: Current everyday Tobacco user Tobacco use type: Cigarette Cigarettes Per Day: 10 Years Smoked: (onset 16yo, 1ppd x 52yrs - 50PYH) e-Cigarette/Vaping Use: Never Used service: No Current occupational status: retired Cognitive needs: No Hearing needs: No Vision needs: Yes Review of Systems Const All systems reviewed & are unremarkable except as noted in HPI and below Physical Exam Vital Signs: Last Vital Signs Pulse 77 04/14/25 15:47 BP 132/72 04/14/25 15:56 Pulse Ox 98 04/14/25 15:47 Oxygen Delivery Method Room Air 04/14/25 15:47 BMI result Body Mass Index 15.7 Const General: comfortable and no acute distress Orientation/consciousness: patient oriented x3 HEENT Head: Yes normocephalic Mouth: Normal oral and palatal mucosa present Eyes EOM: EOMs intact bilaterally Neck Neck: Yes supple Resp Auscultation: clear to auscultation bilaterally Cardio Jugular venous distension: no JVD Rate: regular rate GI Palpation (GI): Soft to palpation Auscultation: normal bowel sounds General: Yes no CVA tenderness Back/Spine/Pelvis Back: no CVA tenderness Skin General skin exam: no rashes or lesions noted Neuro General: patient oriented x3 and moves all extremities Extrem General: Yes no pedal edema Results Reviewed Nephrology Results: Hgb, (12.0-16.0) 10.7 g/dl L 08/24/24 WBC, (4.8-10.8) 4.8 X10*3/uL 08/24/24 Plt Count, (160-400) 240 X10*3/uL 08/24/24 Sodium, (135-145) 136 mmol/L 04/12/25 Potassium, (3.3-5.1) 3.8 mmol/L 04/12/25 Chloride, (96-108) 103 mmol/L 04/12/25 Carbon Dioxide, (22-29) 24 mmol/L 04/12/25 BUN, (9-16) 31 mg/dL H 04/12/25 Creatinine, (0.5-1.4) 1.43 mg/dL H 04/12/25 Calcium, (8.4-10.2) 10.2 mg/dL 03/24/24 Phosphorus, (2.7-4.5) 3.5 mg/dL 10/31/23 PTH Intact, (8.7-77.1) 61.7 pg/mL 10/31/23 Urine Protein, (Neg-Trace) Trace mg/dL 08/24/24 Urine Creatinine 69.84 mg/dL 03/24/24 Protein/Creatinin Ratio, (<0.2) 0.19 10/31/23 Renal US 10/31/23 Assessment & Plan Assessment & Plan (1) CKD (chronic kidney disease) stage 3, GFR 30-59 ml/min: Code(s): N18.30 - Chronic kidney disease, stage 3 unspecified Category: Medical Qualifiers: Chronic kidney disease stage 3 subtype: stage 3a (GFR 45-59) Qualified Code(s): N18.31 - Chronic kidney disease, stage 3a (2) Anemia in chronic kidney disease: Code(s): N18.9 - Chronic kidney disease, unspecified; D63.1 - Anemia in chronic kidney disease Category: Medical Qualifiers: Chronic kidney disease stage: stage 3 (moderate) Chronic kidney disease stage 3 subtype: stage 3b (GFR 30-44) Qualified Code(s): N18.32 - Chronic kidney disease, stage 3b; D63.1 - Anemia in chronic kidney disease (3) Hypertension, essential: Code(s): I10 - Essential (primary) hypertension Category: Medical Plan Isabela has CKD 3 likely due to long standing hypertension and or vascular disease. Her serum creatinine had been stable at baseline. Doppler of her renal arteries did not show any renal artery stenosis. She was on ACEI in the past which has been discontinued by her previous Renal MD in [place]. She may need Jardiance. Her BP needs to be maintained at goal consistently. She will need Procrit once her Hb drifts down to 10 or under, but there is no indication for it now. I asked to take Iron tablets daily. Follow-up lab work ordered and follow-up appointment given Orders: Orders Blood Urea Nitrogen 6 Months I10 - Essential (primary) hypertension, N18.31 - Chronic kidney disease, stage 3a Electrolytes 6 Months I10 - Essential (primary) hypertension, N18.31 - Chronic kidney disease, stage 3a Complete Blood Count Auto Diff 6 Months D63.1 - Anemia in chronic kidney disease, N18.32 - Chronic kidney disease, stage 3b Creatinine 6 Months I10 - Essential (primary) hypertension, N18.31 - Chronic kidney disease, stage 3a Coding Level of Care Code Est Pt Level 4 (79317) Diagnoses Stage 3a chronic kidney disease N18.31 Chronic kidney disease stage 3 subtype: stage 3a (GFR 45-59) Anemia in stage 3b chronic kidney disease N18.32; D63.1 Chronic kidney disease stage: stage 3 (moderate) Chronic kidney disease stage 3 subtype: stage 3b (GFR 30-44) Hypertension, essential I10
[2025-04-14 15:47] VITALS: BP 140/70; PULSE 77; O2SAT 98; BMI 15.7
[2025-04-14 15:56] VITALS: BP 132/72
--- OUTSIDE RECORDS SUMMARY | 2025-04-14 18:29 | XMS_ITS | Referral Summary ---
Author Organization [facility] Address [address] [place] [address] Care Team Providers Care Business Services Clerk Name Role Phone Reny Bloom DO Primary Care Provider + [phone] Allergies No known active allergies Medications omeprazole [...] disease 10/30/2022 Overview (02/14/2023): Patient admitted to [facility] for JOSE, likely secondary to dehydration in [...] to obtain records from previous PCP in [place]. Health maintenance topics reviewed Patient reports up-to-date [...] Not on file Procedures * Due to [place] state law, this organization might not be [...] to Health Maintenance Results * Due to [place] state law, this organization might not be [...] to obtain the completed interpretation. Workstation ID: [id number] Narrative 01/17/2023 9:16 AM EDT EXAM: BONE MINERAL DENSITY INDICATION: Asymptomatic Menopausal State Z78.0 - I10 - Asymptomatic menopausal state PROCEDURE: The bone mineral density (BMD) of the spine and proximal left femur was determined using an external X-ray source([place]). SITE: [facility] FINDINGS: L1-L4: BMD 0.77gm/cm2 T-Score -2.5 [...] help protect against falls. Resulting Agency Comment [id number] Procedure Note Elio Pathak MD - 01/17/2023 EXAM: BONE MINERAL DENSITY INDICATION: Asymptomatic Menopausal State Z78.0 - I10 - Asymptomaticmenopausal state PROCEDURE: The bone mineral density (BMD) of the spine and proximal leftfemur was determined using an external X-ray source([employer]). SITE: [facility] FINDINGS: L1-L4: BMD 0.77gm/cm2 T-Score -2.5 [...] possible to obtain thecompleted interpretation. Workstation ID: [id number] us Reny Bloom DO IMG DXA PROCEDURES [...] dense breast tissue shown on mammography. Per [employer] Appropriateness Criteria for Breast Cancer Screening (https://acsearch.acr.org/docs/34126/Narrative/) patient may benefit from tomosynthesis on future mammography and supplemental imaging with automated breast ultrasound (ABUS) or breast MRI depending on risk factors. Automated Breast Ultrasound (ABUS) is now available at both [facility] and in the Department of Mammography at [facility]. To schedule a patient, you can either enter an ABUS order into [facility] [employer] EMR (type in ABUS), call [facility] Central Scheduling at [phone], or call [facility] Central Scheduling at [phone]. To fax an external order: [facility] [phone] and [facility] [phone]. If this radiology report contains a blank [...] MD LAB BLOOD ORDERABLES Final Resu lt [facility] [address] [place] [address], [place] * HM COLONOSCOPY (07/17/2022) 07/17/2022 us Onbase Scan [facility] Final Resu lt from Last 3 Months or Most Recently Relevant to Health Maintenance Insurance MEDICARE [facility] Advance Directives Documents on File Type Date Recorded Patient Risk And Insurance Consultant Expl anation Health Care Proxy 10/21/2022 5:36 PM 2022 * Full Code (Latest Code Status on File) Date Activated Date Inactivated Comments 10/21/2022 12:20 AM 10/21/2022 4:15 PM Care Teams Business Services Clerk Relationship Specialty Start Date End Date Reny Bloom DO [address] [place] [id number] PCP - General Family Medicine 10/30/22
== END 2025-04-14 16:10 | disposition home or self-care (01) ==
PROVIDERS: PCP Family Medicine; Visit Provider Internal Medicine Nephrology
DX: N18.31 Chronic kidney disease, stage 3a (principal); N18.32 Chronic kidney disease, stage 3b; D63.1 Anemia in chronic kidney disease; I10 Essential (primary) hypertension
CPT/HCPCS: 99214

== ENCOUNTER → 2025-04-14 15:44 | Outpatient (BNVA) | payer MEDICARE, SELFPAY | PROVIDERS: PCP Family Medicine; Visit Provider Internal Medicine Nephrology | DX: N18.32 Chronic kidney disease, stage 3b (principal); I10 Essential (primary) hypertension; D63.1 Anemia in chronic kidney disease | CPT/HCPCS: 99212 ==